=== PATIENT | female | born 1945 | race Caucasian/White ===

== ENCOUNTER 2017-08-20 14:25 | Emergency (ER) | payer MEDICARE, OTHER ==
[2017-08-20] MEDS ORDERED: Sodium Chloride 0.9% 2.5 ML Syringe FLUSH PRN (14:53)
[2017-08-20] MEDS ORDERED: Ketorolac 30 MG/ML SDV IVPUSH ONE (14:53)
[2017-08-20] MEDS ORDERED: Sodium Chloride 0.9% 10 ML Syringe FLUSH PRN (14:53)
[2017-08-20] MEDS ORDERED: Aspirin 81 MG Tab.Chew PO ONE (14:53)
--- NOTE | 2017-08-20 14:54 | EDM.PDOC ---
ED HPI GENERAL MEDICAL PROBLEM - General Chief Complaint: Upper Extremity Injury/Pain Stated Complaint: L SHOULDER PAIN, NECK PAIN Time Seen by Provider: 08/20/17 14:43 - History of Present Illness INITIAL COMMENTS - FREE TEXT/NARRATIVE: HISTORY AND PHYSICAL: History of present illness: The patient is a 72-year-old female who does see a provider at [facility] on an irregular basis and presents today with complaints of left shoulder pain that has been ongoing for the last 2 weeks. The patient denies any recent injury and did not overuse it and says that the pain is located in the anterior aspect of the shoulder as well as the posterior aspect of the upper shoulder radiating into her neck. It is worse with certain movements and there is no neurosensory changes or weakness in the arm. The patient also tells me that she has intermittent shortness of breath sometimes with exertion and sometimes at rest and she has had a slight cold but the shortness of breath has been ongoing before that. She said she saw Farzana Rodriguez at [facility] in the past for this and had a workup and I have found some of that workup in the computer which was performed in May 2016. The patient had a stress test here which was negative for ischemia and she has had wellness checks as well the last one in April 2017. The patient said that she was given an inhaler by Farzana and had blood work and an x-ray done over there back in May 2016 but she never really followed up afterwards. The patient denies any leg pain or swelling no abdominal complaints and has been eating and drinking normally. Patient tells me that when she takes a deep breath she sometimes feels the discomfort in her shoulder. Patient said she took [id number] Aleve and it did not seem to get any better. Patient is very vague when I ask her questions but when I specifically pressor on the shortness of breath it appears that it's not acutely new but she vacillates on the answer. Review of systems: As per history of present illness and below otherwise all systems reviewed and negative. Past medical history: As per history of present illness and as reviewed below otherwise noncontributory. Surgical history: As per history of present illness and as reviewed below otherwise noncontributory. Social history: No reported history of drug or alcohol abuse. Family history: As per history of present illness and as reviewed below otherwise noncontributory. Physical exam: General: Well-developed well-nourished thin female who is nontoxic and ambulated into the ED. She is not breathless and she is speaking clearly and vital signs are reviewed by me. HEENT: Atraumatic, normocephalic, pupils reactive, negative for conjunctival pallor or scleral icterus, mucous membranes moist, throat clear, neck supple, nontender, trachea midline. There are no midline step-offs in his defects of the cervical spine but there is some trapezius and left paraspinal cervical muscular tenderness and spasm on palpation. Lungs: Clear to auscultation, breath sounds equal bilaterally, chest nontender. There is no work of breathing stridor wheezing or sensory muscle use Heart: S1S2, regular rhythm tachycardic rate on my evaluation, negative for clicks, rubs, or JVD. Abdomen: Soft, nondistended, nontender. NABS Negative for costovertebral tenderness. Pelvis: Stable nontender. Genitourinary: Deferred. Rectal: Deferred. Extremities: Atraumatic, negative for cords or calf pain. Neurovascular unremarkable. No pedal edema or leg asymmetry. On palpation of the left shoulder and clavicle area there is no bony tenderness no gross soft tissue swelling no warmth and no bony tenderness. I palpate the trigger point on the left shoulder there is some discomfort and when I passively range of motion the patient there is discomfort at the extremes of the range. Patient says that I can reproduce the pain with this movement and with the palpation of the muscles. Neuro: Awake, alert, oriented. Cranial nerves II through XII unremarkable. Cerebellum unremarkable. Motor and sensory unremarkable throughout. Exam nonfocal. Diagnostics: EKG CBC CMP d-dimer troponin chest x-ray left shoulder x-ray and cultures 2 Therapeutics: IV O2 monitor Toradol aspirin and Tylenol Rocephin I discussed with the patient and her sister at bedside at length her testing results and have offered her admission due to her WBC count of 16.4 and her positive CAT scan indicating a lingular consolidation consistent with pneumonia. Patient absolutely wants to try outpatient treatment so I will give her a dose of Rocephin here and send her home with Levaquin orally. Patient currently has a temperature of 100 so I will give her a dose of Tylenol and have advised her to monitor her temperature at home using Tylenol and ibuprofen for the fever of 100.4 prior. I've also advised her on reasons to return and need for follow-up in the clinic for which she needs to call Wednesday morning. The patient is no longer tachycardic and she is not hypoxic. We will send blood cultures prior to her departure Impression: Lingular pneumonia, declining admission; mild left shoulder bursitis Definitive disposition and diagnosis as appropriate pending reevaluation and review of above. left shoulder Pain Score (Numeric/FACES): 8 - Related Data Allergies Allergy/AdvReac Type Severity Reaction Status Date / Time Sulfa (Sulfonamide Allergy Redness Verified 08/20/17 14:38 Antibiotics) Home Meds: Home Meds . [No Known Home Meds] 08/20/17 [History] Past Medical History - Infectious Disease History Infectious Disease History: Reports: Chicken Pox, Measles, Mumps - Past Surgical History HEENT Surgical History: Reports: Tonsillectomy Social & Family History - Family History Family Medical History: Noncontributory - Tobacco Use Smoking Status *Q: Never Smoker - Alcohol Use Days Per Week of Alcohol Use: 7 Number of Drinks Per Day: 1 Total Drinks Per Week: 7 - Recreational Drug Use Recreational Drug Use: No Review of Systems - Review of Systems Review Of Systems: ROS reveals no pertinent complaints other than HPI. ED EXAM, GENERAL - Physical Exam Exam: See Below (See dictation) Course - Vital Signs Last Recorded V/S: Last Vital Signs Temp 37.1 C 08/20/17 14:38 Pulse 120 H 08/20/17 14:38 Resp 18 08/20/17 14:38 BP 143/82 H 08/20/17 14:38 Pulse Ox 96 08/20/17 15:27 - Orders/Labs/Meds Orders: Active Orders 24 hr Category Date Time Status Cardiac Monitoring [RC] . DIRECTED Care 08/20/17 14:52 Active EKG Documentation Completion [RC] STAT Care 08/20/17 14:52 Active Oxygen Therapy, ED [RC] ASDIRECTED Care 08/20/17 14:52 Active Pulse Oximetry [RC] ASDIRECTED Care 08/20/17 14:52 Active Ang Chest [CT] Stat Exams 08/20/17 16:02 Taken Chest 2V [CR] Stat Exams 08/20/17 14:53 Taken Shoulder Comp Lt [CR] Stat Exams 08/20/17 14:53 Taken CULTURE BLOOD [BC] Stat Lab 08/20/17 17:39 Ordered CULTURE BLOOD [BC] Stat Lab 08/20/17 17:39 Ordered Acetaminophen [Tylenol] Med 08/20/17 17:39 Once 650 mg PO NOW ONE Sodium Chloride 0.9% [Saline Flush] Med 08/20/17 14:53 Active 10 ml FLUSH ASDIRECTED PRN Sodium Chloride 0.9% [Saline Flush] Med 08/20/17 14:53 Active 2.5 ml FLUSH ASDIRECTED PRN cefTRIAXone [Rocephin in Dextrose,Iso-Osm 1 GM/50 ML] 1 Med 08/20/17 17:33 Active gm Premix Bag 1 bag IV ONETIME Blood Culture x2 Reflex Set [OM.PC] Stat Oth 08/20/17 17:39 Ordered Saline Lock Insert [OM.PC] Stat Oth 08/20/17 14:52 Ordered Medication Orders Ceftriaxone Sodium/Dextrose 1 (gm/ Premix) 50 mls @ 100 mls/hr IV ONETIME ONE Stop: 08/20/17 18:02 Sodium Chloride (Saline Flush) 10 ml FLUSH ASDIRECTED PRN PRN Reason: Keep Vein Open Sodium Chloride (Saline Flush) 2.5 ml FLUSH ASDIRECTED PRN PRN Reason: Keep Vein Open Labs: Laboratory Tests 08/20/17 08/20/17 08/20/17 Range/Units 15:11 15:11 15:11 WBC 16.46 H (4.0-11.0) K/uL RBC 4.25 L (4.30-5.90) M/uL Hgb 12.5 (12.0-16.0) g/dL Hct 37.3 (36.0-46.0) % MCV 87.8 (80.0-98.0) fL MCH 29.4 (27.0-32.0) pg MCHC 33.5 (31.0-37.0) g/dL RDW Std Deviation 45.6 (28.0-62.0) fl RDW Coeff of Anitha 14 (11.0-15.0) % Plt Count 370 (150-400) K/uL MPV 9.50 (7.40-12.00) fL Neut % (Auto) 84.9 H (48.0-80.0) % Lymph % (Auto) 7.7 L (16.0-40.0) % Morton % (Auto) 7.0 (0.0-15.0) % Eos % (Auto) 0.2 (0.0-7.0) % Baso % (Auto) 0.2 (0.0-1.5) % Neut # (Auto) 14.0 H (1.4-5.7) K/uL Lymph # (Auto) 1.3 (0.6-2.4) K/uL Morton # (Auto) 1.2 H (0.0-0.8) K/uL Eos # (Auto) 0.0 (0.0-0.7) K/uL Baso # (Auto) 0.0 (0.0-0.1) K/uL Nucleated RBC % 0.0 /100WBC Nucleated RBCs # 0 K/uL D-Dimer, Quantitative 1.04 H (0.0-0.52) mg/LFEU Lactate (0.20-2.00) mmol/L Sodium 138 (136-146) mmol/L Potassium 4.1 (3.5-5.1) mmol/L Chloride 102 (98-110) mmol/L Carbon Dioxide 20 L (21-31) mmol/L BUN 10 (6.0-23.0) mg/dL Creatinine 0.8 (0.6-1.5) mg/dL Est Cr Clr Drug Dosing 57.75 mL/min Estimated GFR (MDRD) > 60.0 ml/min Glucose 112 H (60-110) mg/dL Calcium 9.5 (8.8-10.8) mg/dL Total Bilirubin 1.0 (0.1-1.5) mg/dL AST 27 (5-40) IU/L ALT 23 (8-54) IU/L Alkaline Phosphatase 181 H (40-150) Troponin I < 0.10 (0.0-0.29) NG/ML Total Protein 7.1 (6.0-8.0) g/dL Albumin 4.1 (3.4-4.8) g/dL Globulin 3.0 (2.0-3.5) g/dL Albumin/Globulin Ratio 1.4 (1.3-2.8) 08/20/17 Range/Units 15:11 WBC (4.0-11.0) K/uL RBC (4.30-5.90) M/uL Hgb (12.0-16.0) g/dL Hct (36.0-46.0) % MCV (80.0-98.0) fL MCH (27.0-32.0) pg MCHC (31.0-37.0) g/dL RDW Std Deviation (28.0-62.0) fl RDW Coeff of Anitha (11.0-15.0) % Plt Count (150-400) K/uL MPV (7.40-12.00) fL Neut % (Auto) (48.0-80.0) % Lymph % (Auto) (16.0-40.0) % Morton % (Auto) (0.0-15.0) % Eos % (Auto) (0.0-7.0) % Baso % (Auto) (0.0-1.5) % Neut # (Auto) (1.4-5.7) K/uL Lymph # (Auto) (0.6-2.4) K/uL Morton # (Auto) (0.0-0.8) K/uL Eos # (Auto) (0.0-0.7) K/uL Baso # (Auto) (0.0-0.1) K/uL Nucleated RBC % /100WBC Nucleated RBCs # K/uL D-Dimer, Quantitative (0.0-0.52) mg/LFEU Lactate 1.1 (0.20-2.00) mmol/L Sodium (136-146) mmol/L Potassium (3.5-5.1) mmol/L Chloride (98-110) mmol/L Carbon Dioxide (21-31) mmol/L BUN (6.0-23.0) mg/dL Creatinine (0.6-1.5) mg/dL Est Cr Clr Drug Dosing mL/min Estimated GFR (MDRD) ml/min Glucose (60-110) mg/dL Calcium (8.8-10.8) mg/dL Total Bilirubin (0.1-1.5) mg/dL AST (5-40) IU/L ALT (8-54) IU/L Alkaline Phosphatase (40-150) Troponin I (0.0-0.29) NG/ML Total Protein (6.0-8.0) g/dL Albumin (3.4-4.8) g/dL Globulin (2.0-3.5) g/dL Albumin/Globulin Ratio (1.3-2.8) Meds: Medications Generic Name Dose Route Start Last Admin Trade Name Freq PRN Reason Stop Dose Admin Ceftriaxone Sodium/Dextrose 1 50 mls @ 100 mls/hr 08/20/17 17:33 gm/ Premix IV 08/20/17 18:02 ONETIME ONE Sodium Chloride 10 ml 08/20/17 14:53 Saline Flush FLUSH ASDIRECTED PRN Keep Vein Open Sodium Chloride 2.5 ml 08/20/17 14:53 Saline Flush FLUSH ASDIRECTED PRN Keep Vein Open Discontinued Medications Generic Name Dose Route Start Last Admin Trade Name Freq PRN Reason Stop Dose Admin Aspirin 324 mg 08/20/17 14:53 08/20/17 15:15 Aspirin PO 08/20/17 14:54 324 mg ONETIME ONE Administration Iopamidol 50 ml 08/20/17 16:12 08/20/17 16:39 Isovue-370 (76%) IV 08/20/17 16:13 50 ml ONETIME STA Administration Ketorolac Tromethamine 30 mg 08/20/17 14:53 08/20/17 15:16 Toradol IVPUSH 08/20/17 14:54 30 mg ONETIME ONE Administration Departure - Departure Time of Disposition: 17:42 Disposition: Home, Self-Care 01 Condition: Good Clinical Impression: Pneumonia Qualifiers: Pneumonia type: due to unspecified organism Laterality: left Lung location: unspecified part of lung Qualified Code(s): J18.9 - Pneumonia, unspecified organism - Discharge Information Referrals: Mindy Rodriguez NP [Primary Care Provider] - Forms: ED Department Discharge Additional Instructions: The following information is given to patients seen in the emergency department who are being discharged to home. This information is to outline your options for follow-up care. We provide all patients seen in our emergency department with a follow-up referral. The need for follow-up, as well as the timing and circumstances, are variable depending upon the specifics of your emergency department visit. If you don't have a primary care physician on staff, we will provide you with a referral. We always advise you to contact your personal physician following an emergency department visit to inform them of the circumstance of the visit and for follow-up with them and/or the need for any referrals to a consulting specialist. The emergency department will also refer you to a specialist when appropriate. This referral assures that you have the opportunity for followup care with a specialist. All of these measure are taken in an effort to provide you with optimal care, which includes your followup. Under all circumstances we always encourage you to contact your private physician who remains a resource for coordinating your care. When calling for followup care, please make the office aware that this follow-up is from your recent emergency room visit. If for any reason you are refused follow-up, please contact the [facility] emergency department at and ask to speak to the emergency department charge nurse. [facility]- [facility] [address] [place] [id number] [facility] Specialty Care--Orthopedic clinic Professional Building [address] [place] [phone] Please call the clinic on Wednesday morning at 8 AM to get a next but I did ER follow-up and please tell the retail asset protection specialist that your seen in the ER on Wednesday and need this follow-up image. Please take antibiotics as prescribed and push fluids. Use Tylenol or ibuprofen for temperatures and return to ER as needed and as discussed. Please also call and follow-up with our orthopedics clinic for your bursitis shoulder pain. - My Orders Last 24 Hours: My Active Orders 08/20/17 14:52 Cardiac Monitoring [RC] . DIRECTED EKG Documentation Completion [RC] STAT Oxygen Therapy, ED [RC] ASDIRECTED Pulse Oximetry [RC] ASDIRECTED Saline Lock Insert [OM.PC] Stat 08/20/17 14:53 Chest 2V [CR] Stat Shoulder Comp Lt [CR] Stat Sodium Chloride 0.9% [Saline Flush] 10 ml FLUSH ASDIRECTED PRN Sodium Chloride 0.9% [Saline Flush] 2.5 ml FLUSH ASDIRECTED PRN 08/20/17 16:02 Ang Chest [CT] Stat 08/20/17 17:33 cefTRIAXone [Rocephin in Dextrose,Iso-Osm 1 GM/50 ML] 1 gm Premix Bag 1 bag IV ONETIME 08/20/17 17:39 CULTURE BLOOD [BC] Stat CULTURE BLOOD [BC] Stat Acetaminophen [Tylenol] 650 mg PO NOW ONE Blood Culture x2 Reflex Set [OM.PC] Stat - Assessment/Plan Last 24 Hours: My Active Orders 08/20/17 14:52 Cardiac Monitoring [RC] . DIRECTED EKG Documentation Completion [RC] STAT Oxygen Therapy, ED [RC] ASDIRECTED Pulse Oximetry [RC] ASDIRECTED Saline Lock Insert [OM.PC] Stat 08/20/17 14:53 Chest 2V [CR] Stat Shoulder Comp Lt [CR] Stat Sodium Chloride 0.9% [Saline Flush] 10 ml FLUSH ASDIRECTED PRN Sodium Chloride 0.9% [Saline Flush] 2.5 ml FLUSH ASDIRECTED PRN 08/20/17 16:02 Ang Chest [CT] Stat 08/20/17 17:33 cefTRIAXone [Rocephin in Dextrose,Iso-Osm 1 GM/50 ML] 1 gm Premix Bag 1 bag IV ONETIME 08/20/17 17:39 CULTURE BLOOD [BC] Stat CULTURE BLOOD [BC] Stat Acetaminophen [Tylenol] 650 mg PO NOW ONE Blood Culture x2 Reflex Set [OM.PC] Stat
[2017-08-20 15:41] LABS: CHLORIDE,CL 102 mmol/L (98-110); SODIUM,NA 138 mmol/L (136-146)
[2017-08-20] MEDS ORDERED: Iopamidol 755 MG/ML 50 ML Bottle IV STA (16:12)
[2017-08-20] MEDS ORDERED: cefTRIAXone 1 GM in Premix Bag 1 BAG IV ONE (17:33)
[2017-08-20] MEDS ORDERED: Acetaminophen 325 MG Tab PO ONE (17:39)
--- NOTE | 2017-08-23 10:23 | CR ---
EXAM DATE: 08/20/17 PATIENT'S AGE: 72 Patient: ROBERT LARA Facility: [place], [place] Site . Site : 1945 Study: XRay Shoulder Left [id number]/2/2018 4:24:25 PM Ordering Physician: Marisol Honeycutt Final Report: Indication: Left shoulder pain. Technique: Left shoulder 3 views. Comparison: None. Findings: Bones: Alignment is normal. No fractures or bone lesions. Joint spaces: Unremarkable. No significant DJD. Soft tissues: Unremarkable. Impression: Unremarkable left shoulder. No specific finding to explain pain. Dictated by Hari Bucio MD @ Aug 20 2017 4:27PM (Electronic Signature) Report Signed by Proxy. MTDD
--- NOTE | 2017-08-23 10:26 | CR ---
EXAM DATE: 08/20/17 PATIENT'S AGE: 72 Patient: ROBERT LARA Facility: [place], [place] Site . Site : 1945 Study: XRay Chest [id number]/2/2018 4:25:02 PM Ordering Physician: Marisol Honeycutt Final Report: INDICATION: Left shoulder pain TECHNIQUE: Chest 2 views COMPARISON: None FINDINGS: Cardiovascular and mediastinum: Heart size and vasculature are normal in caliber and appearance. Lungs and pleural spaces: There is an atypical opacity in the left lung base and blunting of the left costophrenic angle. Remainder of the lungs and pleural spaces are clear. No pneumothorax. Bones and soft tissues: No significant findings. IMPRESSION: Somewhat atypical appearance of a presumed left side pleural effusion. Chest CT should be considered for further evaluation. At minimum a short term follow up chest x-ray should be obtained. Remainder of the exam is unremarkable. Dictated by Hari Bucio MD @ Aug 20 2017 4:27PM (Electronic Signature) Report Signed by Proxy. AMINATA
--- NOTE | 2017-08-23 10:35 | CT ---
EXAM DATE: 08/20/17 PATIENT'S AGE: 72 Patient: ROBERT LARA Facility: [place], [place] Site . Site : 1945 Study: CT Chest Angio [id number] -08/20/2017 4:49:53 PM Ordering Physician: Marisol Honeycutt Final Report: INDICATION: Shortness of Breath TECHNIQUE: CT chest pulmonary angiogram acquired with IV contrast COMPARISON: None FINDINGS: Cardiovascular structures: Normal vascular enhancement of the pulmonary arteries , no sign of pulmonary embolism. Heart size is normal. Atherosclerotic disease. No sign of aneurysm or dissection in the thoracic aorta. Mediastinum and jose: Prominent nonspecific mediastinal lymph nodes. Incompletely evaluated left thyroid nodule with associated calcifications. Lungs: Lingular consolidation. Left-sided pleural effusion with associated compressive atelectasis. No evidence of pneumothorax. Chest wall and axilla: No mass or adenopathy. Bones: Degenerative changes. Upper abdomen: Hiatal hernia IMPRESSION: 1. No evidence of pulmonary embolism. 2. Lingular consolidation. Left-sided pleural effusion with associated compressive atelectasis. Prominent mediastinal lymph nodes. Please correlate for pneumonia. 3. Incompletely evaluated left thyroid nodule with associated calcifications. Please correlate clinically and with laboratory findings. Dictated by Darien Hall MD @ 08/20/2017 5:09:12 PM Dictated by: Darien Hall MD @ 08/20/2017 17:09:46 (Electronic Signature) Report Signed by Proxy. [facility]ITAL[facility]
== END 2017-08-20 18:50 | disposition home or self-care (01) ==
LOC: MW.ED 14:25
DX: M75.52 Bursitis of left shoulder (principal); J18.9 Pneumonia, unspecified organism; Z88.2 Allergy status to sulfonamides
CPT/HCPCS: 36415; 71046; 71275; 73030; 80053; 83605; 84484; 85025; 85379; 87040; 96365; 96375; 99284; A9270; J0696; J1885; Q9967

== ENCOUNTER 2017-10-01 08:22 | Inpatient (IN) | payer MEDICARE, OTHER ==
[2017-10-01] MEDS ORDERED: Sodium Chloride 0.9% 10 ML Syringe FLUSH PRN (08:37)
[2017-10-01] MEDS ORDERED: Sodium Chloride 0.9% 2.5 ML Syringe FLUSH PRN (08:37)
--- NOTE | 2017-10-01 08:41 | EDM.PDOC ---
ED HPI GENERAL MEDICAL PROBLEM - General Chief Complaint: Neck Problem Stated Complaint: NECK PAIN Time Seen by Provider: 10/01/17 11:31 - History of Present Illness INITIAL COMMENTS - FREE TEXT/NARRATIVE: HISTORY AND PHYSICAL: History of present illness: Patient 72-year-old female with a history of chronic dyspnea for which she has been evaluated and has a scheduled pulmonology appointment patient is a nonsmoker she also has history of shoulder pain for which she received a cortisone shot recently and presents today with increasing shortness of breath and neck pain this is worse with movement she denies trauma she denies chest pain denies nausea vomiting palpitations fever chills or other complaints daughter is here with patient states she has had pneumonia in the past and frequent episodes of such. Review of systems: As per history of present illness and below otherwise all systems reviewed and negative. Past medical history: As per history of present illness and as reviewed below otherwise noncontributory. Surgical history: As per history of present illness and as reviewed below otherwise noncontributory. Social history: No reported history of drug or alcohol abuse. Family history: As per history of present illness and as reviewed below otherwise noncontributory. Physical exam: HEENT: Atraumatic, normocephalic, pupils reactive, negative for conjunctival pallor or scleral icterus, mucous membranes moist, throat clear, neck supple, mild paracervical tenderness no vertebral body or point tenderness, trachea midline. Lungs: Diminished slightly coarse breath sounds equal bilaterally, chest nontender. Heart: S1S2, regular, negative for clicks, rubs, or JVD. Abdomen: Soft, nondistended, nontender. Negative for masses or hepatosplenomegaly. Negative for costovertebral tenderness. Pelvis: Stable nontender. Genitourinary: Deferred. Rectal: Deferred. Extremities: Atraumatic, negative for cords or calf pain. Neurovascular unremarkable. Neuro: Awake, alert, oriented. Cranial nerves II through XII unremarkable. Cerebellum unremarkable. Motor and sensory unremarkable throughout. Exam nonfocal. Diagnostics: CBC CMP troponin d-dimer PT/INR EKG chest x-ray CT cervical spine ABG Therapeutics: IV O2 monitor Impression: #1 dyspnea #2 neck/Shoulder pain Definitive disposition and diagnosis as appropriate pending reevaluation and review of above. Neck Pain Score (Numeric/FACES): 5 - Related Data Allergies Allergy/AdvReac Type Severity Reaction Status Date / Time Sulfa (Sulfonamide Allergy Redness Verified 08/20/17 14:38 Antibiotics) Home Meds: Home Meds Fluticasone/Salmeterol [Advair 250-50 Diskus] 10/01/17 [History] Past Medical History - Infectious Disease History Infectious Disease History: Reports: Chicken Pox, Measles, Mumps - Past Surgical History HEENT Surgical History: Reports: Tonsillectomy Social & Family History - Family History Family Medical History: Noncontributory - Tobacco Use Smoking Status *Q: Never Smoker - Alcohol Use Days Per Week of Alcohol Use: 7 Number of Drinks Per Day: 1 Total Drinks Per Week: 7 - Recreational Drug Use Recreational Drug Use: No ED ROS GENERAL - Review of Systems Review Of Systems: ROS reveals no pertinent complaints other than HPI. ED EXAM, GENERAL - Physical Exam Exam: See Below (See dictation) Course - Vital Signs Last Recorded V/S: Last Vital Signs Temp 37.1 C 10/01/17 08:32 Pulse 120 H 10/01/17 08:32 Resp 20 10/01/17 08:32 BP 126/78 10/01/17 08:32 Pulse Ox 96 10/01/17 08:32 - Orders/Labs/Meds Orders: Active Orders 24 hr Category Date Time Status Cardiac Monitoring [RC] . DIRECTED Care 10/01/17 08:36 Active EKG Documentation Completion [RC] STAT Care 10/01/17 08:36 Active Pulse Oximetry [RC] ASDIRECTED Care 10/01/17 08:36 Active CULTURE BLOOD [BC] Stat Lab 10/01/17 11:28 Ordered CULTURE BLOOD [BC] Stat Lab 10/01/17 11:28 Ordered Levofloxacin/Dextrose 5%-Water [Levaquin in D5W 750 MG/ Med 10/01/17 11:28 Active 150 ML] 750 mg Premix Bag 1 bag IV ONETIME Sodium Chloride 0.9% [Normal Saline] 1,000 ml Med 10/01/17 08:45 Active IV STAT Sodium Chloride 0.9% [Saline Flush] Med 10/01/17 08:37 Active 10 ml FLUSH ASDIRECTED PRN Sodium Chloride 0.9% [Saline Flush] Med 10/01/17 08:37 Active 2.5 ml FLUSH ASDIRECTED PRN Blood Culture x2 Reflex Set [OM.PC] Stat Oth 10/01/17 11:28 Ordered Saline Lock Insert [OM.PC] Stat Ot 10/01/17 08:36 Ordered Medication Orders Sodium Chloride (Normal Saline) 1,000 mls @ 125 mls/hr IV STAT [facility] Last Admin: 10/01/17 09:58 Dose: 125 mls/hr Levofloxacin/Dextrose 750 mg/ (Premix) 150 mls @ 100 mls/hr IV ONETIME ONE Stop: 10/01/17 12:57 Sodium Chloride (Saline Flush) 10 ml FLUSH ASDIRECTED PRN PRN Reason: Keep Vein Open Last Admin: 10/01/17 09:59 Dose: 10 ml Sodium Chloride (Saline Flush) 2.5 ml FLUSH ASDIRECTED PRN PRN Reason: Keep Vein Open Last Admin: 10/01/17 09:59 Dose: 2.5 ml Labs: Laboratory Tests 10/01/17 10/01/17 10/01/17 Range/Units 08:50 08:50 08:50 WBC 8.45 (4.0-11.0) K/uL RBC 4.36 (4.30-5.90) M/uL Hgb 13.0 (12.0-16.0) g/dL Hct 38.4 (36.0-46.0) % MCV 88.1 (80.0-98.0) fL MCH 29.8 (27.0-32.0) pg MCHC 33.9 (31.0-37.0) g/dL RDW Std Deviation 50.4 (28.0-62.0) fl RDW Coeff of Anitha 16 H (11.0-15.0) % Plt Count 190 (150-400) K/uL MPV 9.60 (7.40-12.00) fL Neut % (Auto) 88.9 H (48.0-80.0) % Lymph % (Auto) 6.7 L (16.0-40.0) % [place] % (Auto) 4.1 (0.0-15.0) % Eos % (Auto) 0.2 (0.0-7.0) % Baso % (Auto) 0.1 (0.0-1.5) % Neut # (Auto) 7.5 H (1.4-5.7) K/uL Lymph # (Auto) 0.6 (0.6-2.4) K/uL [place] # (Auto) 0.4 (0.0-0.8) K/uL Eos # (Auto) 0.0 (0.0-0.7) K/uL Baso # (Auto) 0.0 (0.0-0.1) K/uL Nucleated RBC % 0.0 /100WBC Nucleated RBCs # 0 K/uL INR 0.98 D-Dimer, Quantitative 0.67 H (0.0-0.52) mg/LFEU ABG pH (7.35-7.45) ABG pCO2 (35-45) mmHG ABG pO2 (75-100) mmHG ABG HCO3 (22-26) mEq/L ABG Total CO2 ABG Base Excess (-2.0-2.0) Sodium 135 L (136-145) mmol/L Potassium 3.6 (3.5-5.1) mmol/L Chloride 101 (98-107) mmol/L Carbon Dioxide 21.8 (21.0-32.0) mmol/L BUN 12 (7.0-18.0) mg/dL Creatinine 0.7 (0.6-1.0) mg/dL Est Cr Clr Drug Dosing TNP Estimated GFR (MDRD) > 60.0 ml/min Glucose 102 (74-106) mg/dL Calcium 8.5 (8.5-10.1) mg/dL Total Bilirubin 1.0 (0.2-1.0) mg/dL AST 15 (15-37) IU/L ALT 17 (14-63) IU/L Alkaline Phosphatase 96 (46-116) U/L Troponin I < 0.050 (0.000-0.056) ng/mL B-Natriuretic Peptide (<100) PG/ML Total Protein 6.4 (6.4-8.2) g/dL Albumin 3.6 (3.4-5.0) g/dL Globulin 2.8 (2.0-3.5) g/dL Albumin/Globulin Ratio 1.3 (1.3-2.8) 10/01/17 10/01/17 Range/Units 08:50 10:06 WBC (4.0-11.0) K/uL RBC (4.30-5.90) M/uL Hgb (12.0-16.0) g/dL Hct (36.0-46.0) % MCV (80.0-98.0) fL MCH (27.0-32.0) pg MCHC (31.0-37.0) g/dL RDW Std Deviation (28.0-62.0) fl RDW Coeff of Anitha (11.0-15.0) % Plt Count (150-400) K/uL MPV (7.40-12.00) fL Neut % (Auto) (48.0-80.0) % Lymph % (Auto) (16.0-40.0) % [place] % (Auto) (0.0-15.0) % Eos % (Auto) (0.0-7.0) % Baso % (Auto) (0.0-1.5) % Neut # (Auto) (1.4-5.7) K/uL Lymph # (Auto) (0.6-2.4) K/uL [place] # (Auto) (0.0-0.8) K/uL Eos # (Auto) (0.0-0.7) K/uL Baso # (Auto) (0.0-0.1) K/uL Nucleated RBC % /100WBC Nucleated RBCs # K/uL INR D-Dimer, Quantitative (0.0-0.52) mg/LFEU ABG pH 7.498 H (7.35-7.45) ABG pCO2 29 L (35-45) mmHG ABG pO2 69 L (75-100) mmHG ABG HCO3 23 (22-26) mEq/L ABG Total CO2 20.1 ABG Base Excess 0.2 (-2.0-2.0) Sodium (136-145) mmol/L Potassium (3.5-5.1) mmol/L Chloride (98-107) mmol/L Carbon Dioxide (21.0-32.0) mmol/L BUN (7.0-18.0) mg/dL Creatinine (0.6-1.0) mg/dL Est Cr Clr Drug Dosing Estimated GFR (MDRD) ml/min Glucose (74-106) mg/dL Calcium (8.5-10.1) mg/dL Total Bilirubin (0.2-1.0) mg/dL AST (15-37) IU/L ALT (14-63) IU/L Alkaline Phosphatase (46-116) U/L Troponin I (0.000-0.056) ng/mL B-Natriuretic Peptide 135 H (<100) PG/ML Total Protein (6.4-8.2) g/dL Albumin (3.4-5.0) g/dL Globulin (2.0-3.5) g/dL Albumin/Globulin Ratio (1.3-2.8) Meds: Medications Generic Name Dose Route Start Last Admin Trade Name Freq PRN Reason Stop Dose Admin Sodium Chloride 1,000 mls @ 125 mls/hr 10/01/17 08:45 10/01/17 09:58 Normal Saline IV 125 mls/hr STAT SUNNY Administration Levofloxacin/Dextrose 750 mg/ 150 mls @ 100 mls/hr 10/01/17 11:28 Premix IV 10/01/17 12:57 ONETIME ONE Sodium Chloride 10 ml 10/01/17 08:37 10/01/17 09:59 Saline Flush FLUSH 10 ml ASDIRECTED PRN Administration Keep Vein Open Sodium Chloride 2.5 ml 10/01/17 08:37 10/01/17 09:59 Saline Flush FLUSH 2.5 ml ASDIRECTED PRN Administration Keep Vein Open Discontinued Medications Generic Name Dose Route Start Last Admin Trade Name Freq PRN Reason Stop Dose Admin Iopamidol 50 ml 10/01/17 10:28 10/01/17 10:34 Isovue Multipack-370 (76%) IVPUSH 10/01/17 10:29 50 ml ONETIME STA Administration Departure - Departure Time of Disposition: 11:30 Disposition: Admitted As Inpatient 64 Condition: Good Clinical Impression: Pneumonia Qualifiers: Pneumonia type: due to unspecified organism Laterality: left Lung location: unspecified part of lung Qualified Code(s): J18.9 - Pneumonia, unspecified organism - Discharge Information Referrals: PCP,None [Primary Care Provider] - Forms: ED Department Discharge - My Orders Last 24 Hours: My Active Orders 10/01/17 08:36 Cardiac Monitoring [RC] . DIRECTED EKG Documentation Completion [RC] STAT Pulse Oximetry [RC] ASDIRECTED Saline Lock Insert [OM.PC] Stat 10/01/17 08:37 Sodium Chloride 0.9% [Saline Flush] 10 ml FLUSH ASDIRECTED PRN Sodium Chloride 0.9% [Saline Flush] 2.5 ml FLUSH ASDIRECTED PRN 10/01/17 08:45 Sodium Chloride 0.9% [Normal Saline] 1,000 ml IV STAT 10/01/17 11:28 CULTURE BLOOD [BC] Stat CULTURE BLOOD [BC] Stat Levofloxacin/Dextrose 5%-Water [Levaquin in D5W 750 MG/150 ML] 750 mg Premix Bag 1 bag IV ONETIME Blood Culture x2 Reflex Set [OM.PC] Stat - Assessment/Plan Last 24 Hours: My Active Orders 10/01/17 08:36 Cardiac Monitoring [RC] . DIRECTED EKG Documentation Completion [RC] STAT Pulse Oximetry [RC] ASDIRECTED Saline Lock Insert [OM.PC] Stat 10/01/17 08:37 Sodium Chloride 0.9% [Saline Flush] 10 ml FLUSH ASDIRECTED PRN Sodium Chloride 0.9% [Saline Flush] 2.5 ml FLUSH ASDIRECTED PRN 10/01/17 08:45 Sodium Chloride 0.9% [Normal Saline] 1,000 ml IV STAT 10/01/17 11:28 CULTURE BLOOD [BC] Stat CULTURE BLOOD [BC] Stat Levofloxacin/Dextrose 5%-Water [Levaquin in D5W 750 MG/150 ML] 750 mg Premix Bag 1 bag IV ONETIME Blood Culture x2 Reflex Set [OM.PC] Stat
[2017-10-01] MEDS ORDERED: Sodium Chloride 0.9% 1,000 ML IV SCH (08:45)
--- NOTE | 2017-10-01 09:31 | CT ---
EXAMINATION: CT cervical spine HISTORY: Pain COMPARISON: None TECHNIQUE: Axial CT images obtained through the cervical spine without contrast. Coronal and sagittal reconstructions obtained. FINDINGS: There is mild reversal of the normal cervical lordosis centered at C5 with minimal anteroli sthesis of C4 on C5. Mild facet arthritic changes are noted. No fracture or acute osseous abnormality . Bone mineralization appears mildly osteopenic. Moderate degenerative changes noted within the tempo romandibular joints bilaterally. There is a 2.5 x 1.7 cm left thyroid nodule containing calcification s. Prevertebral soft tissues otherwise appear grossly normal. The lung apices are clear. IMPRESSION: 1. No acute cervical spinal abnormality. 2. Mild degenerative changes and generalized osteopenia. 3. There is a 2.5 x 1.7 cm left thyroid lobe nodule, correlation with ultrasound may be beneficial.
--- NOTE | 2017-10-01 09:38 | CR ---
EXAMINATION: Two-view chest (PA and Lateral views). HISTORY: Shortness of breath. Comparison: 08/20/2017. FINDINGS: The trachea is midline. The cardiomediastinal silhouette is within normal limits. Mild infiltrate is noted within the right lung base. No pleural effusion or pneumothorax. Osseous structures appear osteopenic. The curvature of the lower thoracic spine is noted. IMPRESSION: Mild right basilar infiltrate, likely developing pneumonia.
[2017-10-01 09:41] LABS: CHLORIDE,CL 101 mmol/L (98-107); SODIUM,NA 135 mmol/L (136-145)
[2017-10-01] MEDS ORDERED: Iopamidol 755 MG/ML 500 ML Multipack Bottle IVPUSH STA (10:28)
--- NOTE | 2017-10-01 10:58 | CT ---
EXAMINATION: CTA chest HISTORY: Shortness of breath COMPARISON: Radiographs from the same day, CT dated 08/20/2017 TECHNIQUE: Axial CT images obtained through the chest following the administration of 50 mL of Isovue -370 the right antecubital fossa. Coronal and sagittal reconstructions obtained. FINDINGS: There is patchy nodular infiltrate noted in the right upper lobe, right middle lobe, and ri ght lower lobe. This is new in comparison to the recent CT and likely represents an infectious proces s. There is a small to moderate hiatal hernia noted. Heart is normal in size without a pericardial ef fusion. Thoracic aorta is normal in caliber. Main pulmonary arteries are patent. No pulmonary embolis m identified. Central airways are clear. No mediastinal, hilar, or axillary lymphadenopathy. Mild cor onary artery calcifications. Visualized images of the upper abdomen appear normal. No suspicious osseous abnormalities identified. IMPRESSION: 1. Patchy right pulmonary consolidation, most likely representing infectious etiology. 2. Small to moderate hiatal hernia. 3. No pulmonary embolism identified.
[2017-10-01] MEDS ORDERED: Levofloxacin/Dextrose 5%-Water 750 MG in Premix Bag 1 BAG IV ONE (11:28)
[2017-10-01] MEDS ORDERED: Ondansetron 4 MG/2 ML SDV IVPUSH PRN (12:29)
[2017-10-01] MEDS ORDERED: Albuterol/Ipratropium 3.0-0.5 MG/3 ML Neb Soln NEB PRN (12:29)
--- NOTE | 2017-10-01 12:40 | PCM.HP ---
H&P History of Present Illness - General Date of Service: 10/01/17 Admit Problem/Dx: CAP, dyspnea Source of Information: Patient History Limitations: Reports: No Limitations - History of Present Illness Initial Comments - Free Text/Narative: This 72 asa old female with very little pmh but recently with worsening dyspnea presented to the ED today with neck pain and worsening dypsnea. She and daughter at bedside. Ashley reports she has been feeling more short of breath recently and very anxious with this. She reports this has started to be worked up as outpatient and has a scheduled appointment with pulmonology November 01. She recently had PFT testing here. She also was restarted on her Advair as well 250/50 mg 3-4 days ago by her PCP, Jamel Rodriguez [employer]. She denies fevers at home, some non productive cough and some general malaise. She was diagnoses with LLL pneumonia and declined admission approximately 1 month ago. She was sent home with Levaquin PO and felt better, but then within the last couple days worsened again. She denies chest pain, but some chest tightness with taking deep breaths and taking deep breaths is hard for her due to the dyspnea. No abdominal pain or urinary symptoms. No black or bloody BMs. She denies smoking history, but reports she was exposed to second hand smoke from her in the 1970s, until he quit. Drinks 1 glass of wine nightly and no recreational drug use. In the ED WBC 8,450, D dimer elevated slightly at 0.67, ABG obtained which revealed hypoxemia with PCO2 of 69. BMP negative. BNP 135. Cervical CT was obtianed due to neck pain, bilaterally no acute cervical spine abnormalities, degenerative changes and osteopenia noted. There was a small 2.5 x 1.7 cm L thyroid mass. CXR mild R basilar infiltrate CT angio obtained due to elevated d dimer, R pulmonary consolidation, hiatal hernia, no pulmonary embolism. She will be admitted inpatient for CAP and dypsnea. PCP, Jamel Rodriguez, KENDY Neck Pain Score (Numeric/FACES): 5 - Related Data Allergies/Adverse Reactions: Allergies Allergy/AdvReac Type Severity Reaction Status Date / Time Sulfa (Sulfonamide Allergy Redness Verified 08/20/17 14:38 Antibiotics) Home Medications: Home Meds Fluticasone/Salmeterol [Advair 250-50 Diskus] 1 inh INH Q12HR 10/01/17 [History] Past Medical History Cardiovascular History: Reports: None. Denies: CAD, High Cholesterol, Hypertension Respiratory History: Reports: Pneumonia, Recurrent, SOB. Denies: Asthma, COPD Gastrointestinal History: Reports: None. Denies: GERD, GI Bleed Genitourinary History: Reports: None. Denies: Acute Renal Failure, Chronic Renal Insuffiency [employer] ENGINEER History: Reports: Neurological History: Reports: None. Denies: CVA, TIA Psychiatric History: Reports: Anxiety Endocrine/Metabolic History: Denies: Diabetes, Type II, Hypothyroidism, Obesity/ BMI 30+ - Infectious Disease History Infectious Disease History: Reports: Chicken Pox, Measles, Mumps - Past Surgical History HEENT Surgical History: Reports: Tonsillectomy Social & Family History - Family History Family Medical History: Noncontributory - Tobacco Use Smoking Status *Q: Never Smoker Second Hand Smoke Exposure: Yes - Alcohol Use Days Per Week of Alcohol Use: 7 Number of Drinks Per Day: 1 Total Drinks Per Week: 7 - Recreational Drug Use Recreational Drug Use: No - Living Situation & Occupation Living situation: Reports: Alone Occupation: Retired H&P Review of Systems - Review of Systems: Review Of Systems: See Below General: Reports: Malaise, Fatigue. Denies: Fever, Chills, Night Sweats HEENT: Reports: Sore Throat. Denies: Headaches, Hearing Changes, Sinus Congestion, Visual Changes Pulmonary: Reports: Shortness of Breath, Pleuritic Chest Pain, Cough. Denies: Wheezing, Sputum, Hemoptysis Cardiovascular: Reports: No Symptoms. Denies: Chest Pain, Palpitations, Lightheadedness Gastrointestinal: Reports: No Symptoms. Denies: Abdominal Pain, Black Stool, Bloody Stool, Nausea, Vomiting Genitourinary: Reports: No Symptoms. Denies: Dysuria, Frequency, Burning, Pain Musculoskeletal: Reports: Neck Pain (upper trapezius bilaterally) Psychiatric: Reports: Anxiety Neurological: Reports: No Symptoms Hematologic/Lymphatic: Reports: No Symptoms Exam - Exam Exam: See Below - Vital Signs Vital Signs: Last Vital Signs Temp 98.8 F 10/01/17 08:32 Pulse 120 H 10/01/17 08:32 Resp 20 10/01/17 08:32 BP 126/78 10/01/17 08:32 Pulse Ox 96 10/01/17 08:32 Weight: 66.678 kg - Exam Quality Assessment: Supplemental Oxygen. No: DVT Prophylaxis General: Alert, Oriented, Cooperative, Mild Distress, Moderate Distress HEENT: Conjunctiva Clear, Posterior Pharynx Clear (scant erythema to posterior pharynx) Neck: Supple, Trachea Midline, 2 Lungs: Clear to Auscultation, Normal Respiratory Effort, Other (noticeable anxiety and dyspnea on exam) GI/Abdominal Exam: Normal Bowel Sounds, Soft, Non-Tender, No Organomegaly, No Distention, No Abnormal Bruit, No Mass, Pelvis Stable Extremities: Normal Inspection, Normal Range of Motion, Non-Tender, No Pedal Edema, Normal Capillary Refill Neuro Extensive - Mental Status: Alert, Oriented x3, Normal Mood/Affect, Normal Cognition Neuro Extensive - Motor, Sensory, Reflexes: CN II-XII Intact, Normal Gait Psychiatric: Alert, Normal Affect, Normal Mood - Patient Data Result Diagrams: 10/01/17 08:50 10/01/17 08:50 *Q Meaningful Use (ADM) - VTE *Q VTE Criteria *Q: - Stroke *Q Stroke Criteria *Q: - AMI *Q AMI Criteria *Q: - Problem List (1) Pneumonia SNOMED Code(s): 779346044 ICD Code: J18.9 - PNEUMONIA, UNSPECIFIED ORGANISM Status: Acute Current Visit: Yes Qualifiers: Pneumonia type: due to unspecified organism Laterality: right Lung location: lower lobe of lung Qualified Code(s): J18.1 - Lobar pneumonia, unspecified organism (2) COPD (chronic obstructive pulmonary disease) SNOMED Code(s): 79999362 ICD Code: J44.9 - CHRONIC OBSTRUCTIVE PULMONARY DISEASE, UNSPECIFIED Status : Acute Current Visit: Yes Qualifiers: COPD type: COPD with acute lower respiratory infection Qualified Code(s): J44.0 - Chronic obstructive pulmonary disease with acute lower respiratory infection (3) Anxiety SNOMED Code(s): 10233745 ICD Code: F41.9 - ANXIETY DISORDER, UNSPECIFIED Status: Acute Current Visit: Yes Problem List Initiated/Reviewed/Updated: Yes Orders Last 24hrs: Active Orders 24 hr Category Date Time Status Intake and Output [RC] QSHIFT Care 10/01/17 12:30 Ordered Oxygen Therapy [RC] PRN Care 10/01/17 12:29 Ordered RT Aerosol Therapy [RC] ASDIRECTED Care 10/01/17 12:31 Ordered Telemetry Monitoring [Cardiac Monitoring] [RC] . Care 10/01/17 12:32 Ordered DIRECTED Up With Assistance [RC] ASDIRECTED Care 10/01/17 12:29 Ordered VTE/DVT Education [RC] PER UNIT ROUTINE Care 10/01/17 12:29 Ordered Vital Signs [RC] Q4H Care 10/01/17 12:29 Ordered Regular Diet [DIET] Diet 10/01/17 Lunch Ordered BASIC METABOLIC PANEL,BMP [CHEM] AM Lab 10/02/17 05:11 Ordered CBC WITH AUTO DIFF [HEME] AM Lab 10/02/17 05:11 Ordered Albuterol/Ipratropium [DuoNeb 3.0-0.5 MG/3 ML] Med 10/01/17 12:29 Ordered 3 ml NEB Q4HRRT PRN Enoxaparin [Lovenox] Med 10/01/17 12:30 Ordered 30 mg SUBCUT DAILY Fluticasone/Salmeterol [Advair Diskus 250-50] Med 10/01/17 12:45 Unverified DOSE UNIT RTE FREQ LORazepam [Ativan] Med 10/01/17 12:34 Ordered 0.25 mg PO BID PRN Levofloxacin/Dextrose 5%-Water [Levaquin in D5W 750 MG/ Med 10/02/17 12:45 Ordered 150 ML] 750 mg Premix Bag 1 bag IV Q24H Ondansetron [Zofran] Med 10/01/17 12:29 Ordered 4 mg IVPUSH Q4H PRN Resuscitation Status Routine Resus Stat 10/01/17 12:29 Ordered Medication Orders Albuterol/Ipratropium (Duoneb 3.0-0.5 Mg/3 Ml) 3 ml NEB Q4HRRT PRN PRN Reason: Shortness Of Breath/wheezing Enoxaparin Sodium (Lovenox) 40 mg SUBCUT Q24H SUNNY Sodium Chloride (Normal Saline) 1,000 mls @ 125 mls/hr IV STAT SUNNY Last Admin: 10/01/17 09:58 Dose: 125 mls/hr Levofloxacin/Dextrose 750 mg/ (Premix) 150 mls @ 100 mls/hr IV ONETIME ONE Stop: 10/01/17 12:57 Last Admin: 10/01/17 11:59 Dose: 100 mls/hr Levofloxacin/Dextrose 750 mg/ (Premix) 150 mls @ 100 mls/hr IV Q24H SUNNY Ondansetron HCl (Zofran) 4 mg IVPUSH Q4H PRN PRN Reason: Nausea Sodium Chloride (Saline Flush) 10 ml FLUSH ASDIRECTED PRN PRN Reason: Keep Vein Open Last Admin: 10/01/17 09:59 Dose: 10 ml Sodium Chloride (Saline Flush) 2.5 ml FLUSH ASDIRECTED PRN PRN Reason: Keep Vein Open Last Admin: 10/01/17 09:59 Dose: 2.5 ml Assessment/Plan Comment:: This 72 year old female admitted with worsening dyspnea and RLL CAP. 1. CAP, RLL: Will treat with Levaquin. BC pending. Will obtained sputum culture. Hypoxemia noted on ABG. Will monitor 2. COPD: new diagnosis, PFT reviewed with Andelin FEV1 1.41, noted to have marked obstruction defect. Pending pulmonary consult as outpatient in [place]. Will continue Advair 250/50. No wheezing heard on assessment. There also may be component of anxiety with dyspnea. Will trial some Ativan. ABG also showed slight respiratory alkalosis, which may be due to hyperventilation and anxiety. 3. Thyroid nodule: patient notified of cervical CT findings. will have PCP follow up and obtain US at this time. VTE prophylaxis: Lovenox. Dispo: 2-3 days pending improvement.
[2017-10-01] MEDS ORDERED: Ibuprofen 400 MG Tab PO PRN (12:56)
[2017-10-01] MEDS ORDERED: Acetaminophen 325 MG Tab PO PRN (12:56)
[2017-10-01] MEDS: Enoxaparin 40 MG/0.4 ML Syringe SUBCUT SCH (13:59)
[2017-10-01] MEDS: LORazepam 0.5 MG Tab PO PRN (15:34)
[2017-10-01] MEDS ORDERED: Fluticasone/Salmeterol 250-50 MCG Inhalation Powder 14/Diskus INH SCH (21:00)
[2017-10-02 06:01] LABS: CHLORIDE,CL 105 mmol/L (98-107); SODIUM,NA 137 mmol/L (136-145)
[2017-10-02] MEDS: LORazepam 0.5 MG Tab PO PRN (09:50)
--- NOTE | 2017-10-02 12:16 | PCM.DCSUM1 ---
Discharge Summary - Hospital Course HPI Initial Comments: Discharge Summary Date of admission: 10/01/2017 Date of discharge: 10/02/2017 Admitting diagnosis: #1. Community-acquired pneumonia right lower lobe #2. New onset COPD #3. Thyroid nodule appreciated on cervical CT in ER #4. #5. Discharge diagnoses: #1. Community-acquired pneumonia resolving #2. New onset COPD-patient had adverse side effect with increased dose of Advair , reduction of Advair dose patient is able to tolerate #3. Thyroid nodule-TSH appears to be within normal limits, recommend outpatient ultrasound to assess nodule #4. #5. Consultations: None Procedures: None Hospitalization course: Patient was admitted overnight secondary to community- acquired pneumonia of the right lower lobe, patient was started on Levaquin, patient never had an increase leukocytosis. The pneumonia was appreciated on CT. CT also picked up a thyroid nodule, a TSH that was done was within normal limits, recommend outpatient primary care ultrasound follow-up of the thyroid nodule. Patient did not show any clinical signs of thyrotoxicosis or hypothyroidism. Patient is also a new onset COPD patient. She was on Advair 250/ 50 however she did not appear to tolerate this as well, a reduction in her dose does appear to allow her to tolerate her Advair. Patient is also noted to being anxious with a possible depression component as such the patient is going to be started on Zoloft 25 mg to be titrated by her PCP once she is discharged, I will prescribe for her Ativan 0.5 mg to be taken 3 times a day when necessary for 10 days up until the patient is able to see her primary care provider. On patient was stable, didn't require any O2 support, and the decision was made to discharge the patient on oral Levaquin for 8 more days, Advair, Combivent for the patient's COPD, Zoloft 25 mg and Ativan 0.5 mg for the patient 's anxiety/possible depression type symptoms. Disposition on discharge: Home Condition on discharge: Stable Discharge medications: Advair, Combivent, Zoloft, Ativan, Levaquin Follow-up instructions: Follow-up with primary care provider within the next 2- 3 days. Patient should also have a outpatient ultrasound to assess the thyroid nodule seen on CT. - Discharge Data Discharge Date: 10/02/17 Discharge Disposition: Home, Self-Care 01 Condition: Stable - Patient Instructions Diet: Usual Diet as Tolerated Activity: As Tolerated Driving: Do Not Drive Showering/Bathing: May Shower Notify Provider of: Fever, Increased Pain, Swelling and Redness, Drainage, Nausea and/or Vomiting - Discharge Plan Prescriptions/Med Rec: Albuterol/Ipratropium [Combivent Respimat] 4 gm IH QID 30 Days #1 aer.w.adap Fluticasone/Salmeterol [Advair 100-50] 1 puff INH BID 30 Days #1 diskus Levofloxacin [Levaquin] 750 mg PO DAILY 8 Days #8 tab LORazepam [Ativan] 0.5 mg PO TID PRN 10 Days #30 tab PRN Reason: Anxiety Sertraline [Zoloft] 25 mg PO DAILY 30 Days #30 tablet Home Medications: Home Meds Albuterol/Ipratropium [Combivent Respimat] 4 gm IH QID 30 Days #1 aer.w.adap [Rx] Fluticasone/Salmeterol [Advair 100-50] 1 puff INH BID 30 Days #1 diskus [Rx] LORazepam [Ativan] 0.5 mg PO TID PRN 10 Days #30 tab 10/02/17 [Rx] Levofloxacin [Levaquin] 750 mg PO DAILY 8 Days #8 tab 10/02/17 [Rx] Sertraline [Zoloft] 25 mg PO DAILY 30 Days #30 tablet 10/02/17 [Rx] Referrals: [facility] [Outside] Mindy Rodriguez NP [Ordering Only Provider] - - Discharge Summary/Plan Comment DC Time >30 min.: No - Patient Data Vitals - Most Recent: Last Vital Signs Temp 36.3 C 10/02/17 08:00 Pulse 74 10/02/17 08:00 Resp 16 10/02/17 08:00 BP 111/61 10/02/17 08:00 Pulse Ox 97 10/02/17 08:00 Weight - Most Recent: 66.678 kg I&O - Last 24 hours: Intake & Output 10/01/17 10/02/17 10/02/17 22:59 06:59 14:59 Intake Total 966 450 Output Total 100 350 Balance 866 100 Lab Results - Last 24 hrs: Laboratory Results - last 24 hr 10/02/17 10/02/17 10/02/17 Range/Units 05:19 05:19 05:19 WBC 10.36 (4.0-11.0) K/uL RBC 3.58 L (4.30-5.90) M/uL Hgb 10.7 L (12.0-16.0) g/dL Hct 31.5 L (36.0-46.0) % MCV 88.0 (80.0-98.0) fL MCH 29.9 (27.0-32.0) pg MCHC 34.0 (31.0-37.0) g/dL RDW Std Deviation 51.5 (28.0-62.0) fl RDW Coeff of Anitha 16 H (11.0-15.0) % Plt Count 176 (150-400) K/uL MPV 9.80 (7.40-12.00) fL Neut % (Auto) 76.2 (48.0-80.0) % Lymph % (Auto) 14.7 L (16.0-40.0) % Robeson % (Auto) 8.0 (0.0-15.0) % Eos % (Auto) 1.0 (0.0-7.0) % Baso % (Auto) 0.1 (0.0-1.5) % Neut # (Auto) 7.9 H (1.4-5.7) K/uL Lymph # (Auto) 1.5 (0.6-2.4) K/uL Robeson # (Auto) 0.8 (0.0-0.8) K/uL Eos # (Auto) 0.1 (0.0-0.7) K/uL Baso # (Auto) 0.0 (0.0-0.1) K/uL Nucleated RBC % 0.0 /100WBC Nucleated RBCs # 0 K/uL Sodium 137 (136-145) mmol/L Potassium 3.6 (3.5-5.1) mmol/L Chloride 105 (98-107) mmol/L Carbon Dioxide 24.2 (21.0-32.0) mmol/L BUN 9 (7.0-18.0) mg/dL Creatinine 0.6 (0.6-1.0) mg/dL Est Cr Clr Drug Dosing 77.01 mL/min Estimated GFR (MDRD) > 60.0 ml/min Glucose 99 (74-106) mg/dL Calcium 8.1 L (8.5-10.1) mg/dL TSH 3rd Generation 2.23 (0.36-3.74) uIU/mL Med Orders - Current: Current Medications Acetaminophen (Tylenol) 650 mg PO Q6H PRN PRN Reason: Pain Albuterol/Ipratropium (Duoneb 3.0-0.5 Mg/3 Ml) 3 ml NEB Q4HRRT PRN PRN Reason: Shortness Of Breath/wheezing Last Admin: 10/02/17 10:12 Dose: 3 ml Enoxaparin Sodium (Lovenox) 40 mg SUBCUT Q24H SUNNY Last Admin: 10/01/17 13:59 Dose: 40 mg Sodium Chloride (Normal Saline) 1,000 mls @ 125 mls/hr IV STAT SUNNY Last Admin: 10/01/17 09:58 Dose: 125 mls/hr Levofloxacin/Dextrose 750 mg/ (Premix) 150 mls @ 100 mls/hr IV Q24H SUNNY Ibuprofen (Motrin) 400 mg PO Q6H PRN PRN Reason: Pain Lorazepam (Ativan) 0.25 mg PO BID PRN PRN Reason: anxiety/SOB Last Admin: 10/02/17 09:50 Dose: 0.25 mg Ondansetron HCl (Zofran) 4 mg IVPUSH Q4H PRN PRN Reason: Nausea Sodium Chloride (Saline Flush) 10 ml FLUSH ASDIRECTED PRN PRN Reason: Keep Vein Open Last Admin: 10/01/17 09:59 Dose: 10 ml Sodium Chloride (Saline Flush) 2.5 ml FLUSH ASDIRECTED PRN PRN Reason: Keep Vein Open Last Admin: 10/01/17 09:59 Dose: 2.5 ml Discontinued Medications Levofloxacin/Dextrose 750 mg/ (Premix) 150 mls @ 100 mls/hr IV ONETIME ONE Stop: 10/01/17 12:57 Last Admin: 10/01/17 11:59 Dose: 100 mls/hr Iopamidol (Isovue Multipack-370 (76%)) 50 ml IVPUSH ONETIME STA Stop: 10/01/17 10:29 Last Admin: 10/01/17 10:34 Dose: 50 ml Fluticasone/Salmeterol (Advair Diskus 250-50) 1 puff INH Q12HR SUNNY *Q Meaningful Use (DIS) - VTE *Q VTE Criteria *Q: - Stroke *Q Stroke Criteria *Q: - AMI *Q AMI Criteria *Q:
[2017-10-02] MEDS ORDERED: Levofloxacin/Dextrose 5%-Water 750 MG in Premix Bag 1 BAG IV SCH (12:45)
[2017-10-02] MEDS: Enoxaparin 40 MG/0.4 ML Syringe SUBCUT SCH (12:58)
== END 2017-10-02 15:00 | disposition home or self-care (01) | DRG 195 ==
LOC: MW.ED 08:22 → OBSVTOIN 11:49 → MW.MS 11:49
PROVIDERS: ADMIT Family Medicine; ATTEND Family Medicine
DX: J18.9 Pneumonia, unspecified organism (principal); R06.00 Dyspnea, unspecified; M54.2 Cervicalgia; M25.519 Pain in unspecified shoulder; J44.9 Chronic obstructive pulmonary disease, unspecified; E04.1 Nontoxic single thyroid nodule; F41.8 Other specified anxiety disorders; Z88.2 Allergy status to sulfonamides; Z79.899 Other long term (current) drug therapy
CPT/HCPCS: 36415; 36600; 71046; 71275; 72125; 80053; 82803; 83880; 84484; 85025; 85379; 85610; 87040 ×2; 93005; 96361; 99285; J7040; Q9967; 80048; 84443; 94640; 96365; 99284; A9270-GY; J1650; J1956

== ENCOUNTER 2017-10-16 17:29 | Emergency (ER) | payer MEDICARE, OTHER ==
--- NOTE | 2017-10-16 18:34 | EDM.PDOC ---
ED HPI GENERAL MEDICAL PROBLEM - General Chief Complaint: Upper Extremity Injury/Pain Stated Complaint: FELL AND POSSIBLY BROKEN WRIST Time Seen by Provider: 10/16/17 18:31 Source of Information: Reports: Patient, EMS - History of Present Illness INITIAL COMMENTS - FREE TEXT/NARRATIVE: HISTORY AND PHYSICAL: History of present illness: [Patient tripped on a rug in her home falling on outstretched hand she complains of 8 out of 10 pain to the left wrist denies head injury or loss of consciousness no fever nausea vomiting chills sweats obvious swelling and bruise over the distal radius ] Review of systems: As per history of present illness and below otherwise all systems reviewed and negative. Past medical history: As per history of present illness and as reviewed below otherwise noncontributory. Surgical history: As per history of present illness and as reviewed below otherwise noncontributory. Social history: No reported history of drug or alcohol abuse. Family history: As per history of present illness and as reviewed below otherwise noncontributory. Physical exam: HEENT: Atraumatic, normocephalic, pupils reactive, negative for conjunctival pallor or scleral icterus, mucous membranes moist, throat clear, neck supple, nontender, trachea midline. Lungs: Clear to auscultation, breath sounds equal bilaterally, chest nontender. Heart: S1S2, regular, negative for clicks, rubs, or JVD. Abdomen: Soft, nondistended, nontender. Negative for masses or hepatosplenomegaly. Negative for costovertebral tenderness. Pelvis: Stable nontender. Genitourinary: Deferred. Rectal: Deferred. Extremities: Atraumatic, negative for cords or calf pain. Neurovascular unremarkable. left splint provided via EMS noted limb is neurovascularly intact with moderate swelling and bruising over the distal radial head neurovascularly intact left upper extremity Neuro: Awake, alert, oriented. Cranial nerves II through XII unremarkable. Cerebellum unremarkable. Motor and sensory unremarkable throughout. Exam nonfocal. Diagnostics: [Left wrist 3 views ] Therapeutics: [ [facility] follow-up with orthopedist Spl[facility] ] Impression: [ impacted distal radial fracture closed ] Definitive disposition and diagnosis as appropriate pending reevaluation and review of above. Left Arm Pain Score (Numeric/FACES): 5 - Related Data Allergies Allergy/AdvReac Type Severity Reaction Status Date / Time Sulfa (Sulfonamide Allergy Redness Verified 10/16/17 17:37 Antibiotics) Home Meds: Home Meds Fluticasone/Salmeterol [Advair 100-50] 1 puff INH BID 30 Days #1 diskus [Rx] LORazepam [Ativan] 0.5 mg PO TID PRN 10 Days #30 tab 10/02/17 [Rx] Levofloxacin [Levaquin] 750 mg PO DAILY 8 Days #8 tab 10/02/17 [Rx] Sertraline [Zoloft] 25 mg PO DAILY 30 Days #30 tablet 10/02/17 [Rx] Past Medical History HEENT History: Reports: Impaired Vision Cardiovascular History: Reports: None Respiratory History: Reports: Pneumonia, Recurrent, SOB Gastrointestinal History: Reports: None Other Gastrointestinal History: Indigestion Genitourinary History: Reports: None EDGE KITTER History: Reports: Musculoskeletal History: Reports: Fracture Other Musculoskeletal History: FX of right humerus, scoliosis Neurological History: Reports: None Psychiatric History: Reports: Anxiety Hematologic History: Reports: None Immunologic History: Reports: None Oncologic (Cancer) History: Reports: None Dermatologic History: Reports: None - Infectious Disease History Infectious Disease History: Reports: Chicken Pox, Measles, Mumps - Past Surgical History Head Surgeries/Procedures: Reports: None HEENT Surgical History: Reports: Tonsillectomy Musculoskeletal Surgical History: Reports: Other (See Below) Other Musculoskeletal Surgeries/Procedures:: R arm fracture surgery Social & Family History - Family History Family Medical History: Noncontributory - Tobacco Use Smoking Status *Q: Never Smoker Second Hand Smoke Exposure: No - Caffeine Use Caffeine Use: Reports: Soda - Alcohol Use Days Per Week of Alcohol Use: 7 Number of Drinks Per Day: 1 Total Drinks Per Week: 7 - Recreational Drug Use Recreational Drug Use: No - Living Situation & Occupation Living situation: Reports: Alone Occupation: Retired Review of Systems - Review of Systems Review Of Systems: ROS reveals no pertinent complaints other than HPI. ED EXAM, GENERAL - Physical Exam Exam: See Below Course - Vital Signs Last Recorded V/S: Last Vital Signs Temp 98.1 F 10/16/17 18:30 Pulse 72 10/16/17 18:30 Resp 18 10/16/17 18:30 BP 129/69 10/16/17 18:30 Pulse Ox 96 10/16/17 18:30 - Orders/Labs/Meds Orders: Active Orders 24 hr Category Date Time Status Wrist Comp Min 3V Lt [CR] Stat Exams 10/16/17 17:32 Taken Departure - Departure Time of Disposition: 18:33 Disposition: Home, Self-Care 01 Condition: Good Clinical Impression: Distal radius fracture, left - Discharge Information Referrals: Mindy Rodriguez NP [Primary Care Provider] - Forms: ED Department Discharge Additional Instructions: Medication as prescribed Return if symptoms persist or worsen Follow-up with orthopedist, call for appointment and appropriate follow-up at number provided below Ice 20 minute intervals 3 times daily [facility] [address], [address] [place] [address] my orthopedic The following information is given to patients seen in the emergency department who are being discharged to home. This information is to outline your options for follow-up care. We provide all patients seen in our emergency department with a follow-up referral. The need for follow-up, as well as the timing and circumstances, are variable depending upon the specifics of your emergency department visit. If you don't have a primary care physician on staff, we will provide you with a referral. We always advise you to contact your personal physician following an emergency department visit to inform them of the circumstance of the visit and for follow-up with them and/or the need for any referrals to a consulting specialist. The emergency department will also refer you to a specialist when appropriate. This referral assures that you have the opportunity for follow-up care with a specialist. All of these measure are taken in an effort to provide you with optimal care, which includes your follow-up. Under all circumstances we always encourage you to contact your private physician who remains a resource for coordinating your care. When calling for follow-up care, please make the office aware that this follow-up is from your recent emergency room visit. If for any reason you are refused follow-up, please contact the [facility] emergency department at and asked to speak to the emergency department charge nurse. - My Orders Last 24 Hours: My Active Orders 10/16/17 17:32 Wrist Comp Min 3V Lt [CR] Stat - Assessment/Plan Last 24 Hours: My Active Orders 10/16/17 17:32 Wrist Comp Min 3V Lt [CR] Stat
--- NOTE | 2017-10-18 11:50 | CR ---
EXAM DATE: 10/16/17 PATIENT'S AGE: 72 Patient: ROBERT LARA Facility: [place], [place] Site . Site : [id number] Study: XRay Extremity Left wrist [id number]/31/2018 5:54:18 PM Ordering Physician: Nichole Kuo Final Report: HISTORY: Pain, fall. FINDINGS: Three views of the left wrist demonstrate osteopenia bone. There is mild impaction fracture of the distal radial metaphysis with cortical break along the dorsal surface. There is minimal dorsal angulation of the distal fracture fragment. No definite extension to the articular surface. The ulna is intact. There is decreased joint space of the triscaphe and 1st carpometacarpal joint. IMPRESSION: Mild impaction fracture of the distal radius with mild dorsal angulation of the distal fracture fragment. Dictated by Adrienne Godoy MD @ 10/16/2017 5:57:01 PM Dictated by: Adrienne Godoy MD @ 10/16/2017 17:57:06 (Electronic Signature) Report Signed by Proxy. AMINATA
== END 2017-10-16 19:50 | disposition home or self-care (01) ==
LOC: MW.ED 17:29
DX: S52.502A Unspecified fracture of the lower end of left radius, initial encounter for closed fracture (principal); Z88.2 Allergy status to sulfonamides; Z79.899 Other long term (current) drug therapy; W18.09XA Striking against other object with subsequent fall, initial encounter
CPT/HCPCS: 73110-26-LT; 73110-LT; 99283

== ENCOUNTER 2020-05-14 14:30 | Observation (INO) | payer MEDICARE, OTHER ==
[2020-05-14] MEDS ORDERED: Sodium Chloride 0.9% 2.5 ML Syringe FLUSH PRN (14:36)
[2020-05-14] MEDS ORDERED: Sodium Chloride 0.9% 10 ML Syringe FLUSH PRN (14:36)
--- NOTE | 2020-05-14 14:43 | EDM.PDOC ---
ED HPI GENERAL MEDICAL PROBLEM - General Chief Complaint: General Stated Complaint: EMS ARRIVAL Time Seen by Provider: 05/14/20 14:31 - History of Present Illness INITIAL COMMENTS - FREE TEXT/NARRATIVE: 75-year-old female with a charted history of pneumonia and anxiety but no other significant medical history who is presenting with altered mental status. History is somewhat limited. EMS reports that she was found down outside her apartment incontinent of stool. Patient does not recall this she denies any physical complaint. She denies feeling confused. She states that she does live in an apartment building that her sister lives at the other side of the apartment and that she does live alone. She states that she has been taking the medication for her memory for the last 2 years but does not recall what it is. She denies any other medications or medical problems. She denies any physical symptoms at this time. No exacerbating or alleviating factors radiation or other associated symptoms. Per Kathy Clark [phone] (pt's daughter and POA): The patient typically avoids MDs. Pt has years of rhinorrhea and dry cough. No change in this. Pt is not currently on any Rx meds. She takes daily Privigen (a memory drug) as well as mucinex for her cough. Patient lives at a senior care community. However, its is not assisted living. Patient's sister spoke to her last night and she was doing OK but having some diarrhea. The patient has had a gradual cognitive decline over the last few years but has accelerated during the isolation 08/20 COVID. Family also noticed a decline this weekend. However, they had not seen her for some time. She normally is very aware of politics and watches a lot of [email or web address]. She can normally discuss current events so being disoriented to the year is unusual. - Related Data Allergies Allergy/AdvReac Type Severity Reaction Status Date / Time Sulfa (Sulfonamide Allergy Redness Verified 05/14/20 14:36 Antibiotics) Home Meds: Home Meds Fluticasone/Salmeterol [Advair 100-50] 1 puff INH BID 30 Days #1 diskus 10/02/17 [Rx] LORazepam [Ativan] 0.5 mg PO TID PRN 10 Days #30 tab 10/02/17 [Rx] Sertraline [Zoloft] 25 mg PO DAILY 30 Days #30 tablet 10/02/17 [Rx] levoFLOXacin [Levaquin] 750 mg PO DAILY 8 Days #8 tab 10/02/17 [Rx] Past Medical History HEENT History: Reports: Impaired Vision Cardiovascular History: Reports: None Respiratory History: Reports: Pneumonia, Recurrent, SOB Gastrointestinal History: Reports: None Other Gastrointestinal History: Indigestion Genitourinary History: Reports: None 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: Musculoskeletal History: Reports: Fracture Other Musculoskeletal History: FX of right humerus, scoliosis Neurological History: Reports: None Psychiatric History: Reports: Anxiety Hematologic History: Reports: None Immunologic History: Reports: None Oncologic (Cancer) History: Reports: None Dermatologic History: Reports: None - Infectious Disease History Infectious Disease History: Reports: Chicken Pox, Measles, Mumps - Past Surgical History Head Surgeries/Procedures: Reports: None HEENT Surgical History: Reports: Tonsillectomy Musculoskeletal Surgical History: Reports: Other (See Below) Other Musculoskeletal Surgeries/Procedures:: R arm fracture surgery Social & Family History - Family History Family Medical History: Noncontributory - Caffeine Use Caffeine Use: Reports: Soda - Living Situation & Occupation Living situation: Reports: Alone Occupation: Retired ED ROS GENERAL - Review of Systems Review Of Systems: See Below Free Text/Narrative/Comment: General: No fever. Skin: No rash. Eyes: No vision problems. ENT: No sore throat. Neck: No neck stiffness. Respiratory: No shortness of breath. Cardiac: No chest pain. Gastrointestinal: No nausea, vomiting or abdominal pain. Urinary: No dysuria. Musculoskeletal: No myalgias/arthralgias. Neurologic: No headache. ED EXAM, GENERAL - Physical Exam Exam: See Below Free Text/Narrative:: General Appearance: No acute distress, appears comfortable Skin: No rash HEENT: Normocephalic/atraumatic, sclera anicteric, mucous membranes moist Neck: Normal range of motion Chest and Lungs: Bilateral breath sounds, clear to auscultation Cardiovascular: Regular rate and rhythm, no murmur Abdomen: Soft, non-tender Back: Normal Musculoskeletal: No edema or tenderness Neurologic: Equal strength in all 5 extremities, sensation grossly intact, facies symmetric, alert and oriented x2 unable to answer date also unable to answer simple questions Psychiatric: Appropriate, cooperative #1 Interpretation EKG Date: 05/14/20 Time: 15:30 EKG Interpretation Comments: Normal sinus rhythm rate of 93 normal axis and intervals no acute ischemia Course - Vital Signs Last Recorded V/S: Last Vital Signs Temp 97.8 F 05/14/20 14:32 Pulse 105 H 05/14/20 16:37 Resp 18 05/14/20 14:32 BP 144/82 H 05/14/20 16:37 Pulse Ox 96 05/14/20 16:37 - Orders/Labs/Meds Orders: Active Orders 24 hr Category Date Time Status Patient Status [ADT] Routine ADT 05/14/20 18:25 Active EKG Documentation Completion [RC] STAT Care 05/14/20 14:36 Active Abdomen Pelvis w Cont [CT] Stat Exams 05/14/20 18:22 Ordered Sodium Chloride 0.9% [Saline Flush] Med 05/14/20 14:36 Active 10 ml FLUSH ASDIRECTED PRN Sodium Chloride 0.9% [Saline Flush] Med 05/14/20 14:36 Active 2.5 ml FLUSH ASDIRECTED PRN Saline Lock Insert [OM.PC] Stat Oth 05/14/20 14:36 Ordered Medication Orders Sodium Chloride (Saline Flush) 10 ml FLUSH ASDIRECTED PRN PRN Reason: Keep Vein Open Last Admin: 05/14/20 15:12 Dose: 10 ml Documented by: ADILIA Sodium Chloride (Saline Flush) 2.5 ml FLUSH ASDIRECTED PRN PRN Reason: Keep Vein Open Last Admin: 05/14/20 15:12 Dose: 2.5 ml Documented by: ADILIA Labs: Laboratory Tests 05/14/20 05/14/20 05/14/20 Range/Units 14:54 14:54 15:00 WBC 16.51 H (4.0-11.0) K/uL RBC 4.58 (4.30-5.90) M/uL Hgb 15.5 (12.0-16.0) g/dL Hct 44.4 (36.0-46.0) % MCV 96.9 (80.0-98.0) fL MCH 33.8 H (27.0-32.0) pg MCHC 34.9 (31.0-37.0) g/dL RDW Std Deviation 46.1 (28.0-62.0) fl RDW Coeff of Anitha 13 (11.0-15.0) % Plt Count 310 (150-400) K/uL MPV 10.30 (7.40-12.00) fL Neut % (Auto) 84.3 H (48.0-80.0) % Lymph % (Auto) 8.7 L (16.0-40.0) % [place] % (Auto) 6.9 (0.0-15.0) % Eos % (Auto) 0.0 (0.0-7.0) % Baso % (Auto) 0.1 (0.0-1.5) % Neut # (Auto) 13.9 H (1.4-5.7) K/uL Lymph # (Auto) 1.4 (0.6-2.4) K/uL [place] # (Auto) 1.1 H (0.0-0.8) K/uL Eos # (Auto) 0.0 (0.0-0.7) K/uL Baso # (Auto) 0.0 (0.0-0.1) K/uL Nucleated RBC % 0.0 /100WBC Nucleated RBCs # 0 K/uL Sodium (136-145) mmol/L Potassium (3.5-5.1) mmol/L Chloride (98-107) mmol/L Carbon Dioxide (21.0-32.0) mmol/L BUN (7.0-18.0) mg/dL Creatinine (0.6-1.0) mg/dL Est Cr Clr Drug Dosing mL/min Estimated GFR (MDRD) ml/min Glucose (74-106) mg/dL Calcium (8.5-10.1) mg/dL Magnesium (1.8-2.4) mg/dL Total Bilirubin (0.2-1.0) mg/dL AST (15-37) IU/L ALT (14-63) IU/L Alkaline Phosphatase (46-116) U/L Creatine Kinase (26-308) U/L Troponin I (0.000-0.056) ng/mL Total Protein (6.4-8.2) g/dL Albumin (3.4-5.0) g/dL Globulin (2.6-4.0) g/dL Albumin/Globulin Ratio (0.9-1.6) Urine Color YELLOW Urine Appearance CLEAR Urine pH 6.5 (5.0-8.0) Ur Specific [place] 1.010 (1.001-1.035) Urine Protein NEGATIVE (NEGATIVE) mg/dL Urine Glucose (UA) NEGATIVE (NEGATIVE) mg/dL Urine Ketones 15 H (NEGATIVE) mg/dL Urine Occult Blood NEGATIVE (NEGATIVE) Urine Nitrite NEGATIVE (NEGATIVE) Urine Bilirubin NEGATIVE (NEGATIVE) Urine Urobilinogen 0.2 (<2.0) EU/dL Ur Leukocyte Esterase NEGATIVE (NEGATIVE) Urine RBC 0-2 (0-2/HPF) Urine WBC 0-2 (0-5/HPF) Ur Epithelial Cells RARE (NONE-FEW) Urine Bacteria RARE (NEGATIVE) Urine Opiates Screen NEGATIVE (NEGATIVE) Ur Oxycodone Screen NEGATIVE (NEGATIVE) Urine Methadone Screen NEGATIVE (NEGATIVE) Ur Barbiturates Screen NEGATIVE (NEGATIVE) Ur Phencyclidine Scrn NEGATIVE (NEGATIVE) Ur Amphetamine Screen NEGATIVE (NEGATIVE) U Methamphetamines Scrn NEGATIVE (NEGATIVE) U Benzodiazepines Scrn NEGATIVE (NEGATIVE) U Cocaine Metab Screen NEGATIVE (NEGATIVE) U Marijuana (THC) Screen NEGATIVE (NEGATIVE) Ethyl Alcohol mg/dL SARS-CoV-2 RNA (SAMIR) (NEGATIVE) 05/14/20 05/14/20 05/14/20 Range/Units 15:00 15:00 15:05 WBC (4.0-11.0) K/uL RBC (4.30-5.90) M/uL Hgb (12.0-16.0) g/dL Hct (36.0-46.0) % MCV (80.0-98.0) fL MCH (27.0-32.0) pg MCHC (31.0-37.0) g/dL RDW Std Deviation (28.0-62.0) fl RDW Coeff of Anitha (11.0-15.0) % Plt Count (150-400) K/uL MPV (7.40-12.00) fL Neut % (Auto) (48.0-80.0) % Lymph % (Auto) (16.0-40.0) % [place] % (Auto) (0.0-15.0) % Eos % (Auto) (0.0-7.0) % Baso % (Auto) (0.0-1.5) % Neut # (Auto) (1.4-5.7) K/uL Lymph # (Auto) (0.6-2.4) K/uL [place] # (Auto) (0.0-0.8) K/uL Eos # (Auto) (0.0-0.7) K/uL Baso # (Auto) (0.0-0.1) K/uL Nucleated RBC % /100WBC Nucleated RBCs # K/uL Sodium 137 (136-145) mmol/L Potassium 3.6 (3.5-5.1) mmol/L Chloride 101 (98-107) mmol/L Carbon Dioxide 22.1 (21.0-32.0) mmol/L BUN 9 (7.0-18.0) mg/dL Creatinine 0.9 (0.6-1.0) mg/dL Est Cr Clr Drug Dosing 50.90 mL/min Estimated GFR (MDRD) > 60.0 ml/min Glucose 121 H (74-106) mg/dL Calcium 9.1 (8.5-10.1) mg/dL Magnesium 2.0 (1.8-2.4) mg/dL Total Bilirubin 1.6 H (0.2-1.0) mg/dL AST 29 (15-37) IU/L ALT 27 (14-63) IU/L Alkaline Phosphatase 104 (46-116) U/L Creatine Kinase 597 H (26-308) U/L Troponin I < 0.050 (0.000-0.056) ng/mL Total Protein 7.3 (6.4-8.2) g/dL Albumin 4.6 (3.4-5.0) g/dL Globulin 2.7 (2.6-4.0) g/dL Albumin/Globulin Ratio 1.7 H (0.9-1.6) Urine Color Urine Appearance Urine pH (5.0-8.0) Ur Specific [place] (1.001-1.035) Urine Protein (NEGATIVE) mg/dL Urine Glucose (UA) (NEGATIVE) mg/dL Urine Ketones (NEGATIVE) mg/dL Urine Occult Blood (NEGATIVE) Urine Nitrite (NEGATIVE) Urine Bilirubin (NEGATIVE) Urine Urobilinogen (<2.0) EU/dL Ur Leukocyte Esterase (NEGATIVE) Urine RBC (0-2/HPF) Urine WBC (0-5/HPF) Ur Epithelial Cells (NONE-FEW) Urine Bacteria (NEGATIVE) Urine Opiates Screen (NEGATIVE) Ur Oxycodone Screen (NEGATIVE) Urine Methadone Screen (NEGATIVE) Ur Barbiturates Screen (NEGATIVE) Ur Phencyclidine Scrn (NEGATIVE) Ur Amphetamine Screen (NEGATIVE) U Methamphetamines Scrn (NEGATIVE) U Benzodiazepines Scrn (NEGATIVE) U Cocaine Metab Screen (NEGATIVE) U Marijuana (THC) Screen (NEGATIVE) Ethyl Alcohol <3 mg/dL SARS-CoV-2 RNA (SAMIR) NEGATIVE (NEGATIVE) Meds: Medications Generic Name Dose Route Start Last Admin Trade Name Freq PRN Reason Stop Dose Admin Sodium Chloride 10 ml 05/14/20 14:36 05/14/20 15:12 Saline Flush FLUSH 10 ml ASDIRECTED PRN Administration Keep Vein Open Sodium Chloride 2.5 ml 05/14/20 14:36 05/14/20 15:12 Saline Flush FLUSH 2.5 ml ASDIRECTED PRN Administration Keep Vein Open Departure - Departure Time of Disposition: 19:04 Disposition: Refer to Observation Condition: Good Clinical Impression: Altered mental status - Discharge Information Sepsis Event Note (ED) - Evaluation Sepsis Screening Result: No Definite Risk - Focused Exam Vital Signs: Vital Signs Temp Pulse Resp BP Pulse Ox 05/14/20 16:37 105 H 144/82 H 96 05/14/20 15:33 99 133/70 98 05/14/20 15:15 98 130/73 98 05/14/20 14:32 97.8 F 104 H 18 150/79 H 96 - My Orders Last 24 Hours: My Active Orders 05/14/20 14:36 EKG Documentation Completion [RC] STAT Sodium Chloride 0.9% [Saline Flush] 10 ml FLUSH ASDIRECTED PRN Sodium Chloride 0.9% [Saline Flush] 2.5 ml FLUSH ASDIRECTED PRN Saline Lock Insert [OM.PC] Stat 05/14/20 18:22 Abdomen Pelvis w Cont [CT] Stat 05/14/20 18:25 Patient Status [ADT] Routine - Assessment/Plan Last 24 Hours: My Active Orders 05/14/20 14:36 EKG Documentation Completion [RC] STAT Sodium Chloride 0.9% [Saline Flush] 10 ml FLUSH ASDIRECTED PRN Sodium Chloride 0.9% [Saline Flush] 2.5 ml FLUSH ASDIRECTED PRN Saline Lock Insert [OM.PC] Stat 05/14/20 18:22 Abdomen Pelvis w Cont [CT] Stat 05/14/20 18:25 Patient Status [ADT] Routine Assessment:: 75-year-old female with unclear history presenting with altered mental status and confusion. Nontoxic on exam given unclear downtime CK ordered. Infection considered CBC CMP urinalysis chest x-ray pending ACS felt unlikely but troponin EKG ordered as well. CT scan of the brain given her altered mental status patient denies any complaint and exam is atraumatic. No known blood thinners. Patient's labs are notable for leukocytosis with neutrophil predominance but are otherwise unremarkable Covid negative urinalysis negative. Given her continued altered mental status with plan for admission for further monitoring evaluation patient discussed in full with the hospitalist who agrees with admission and request CT abdomen pelvis and this is been ordered as well. CT abdomen pelvis result to be reviewed by Dr. Stanley.
[2020-05-14 15:40] LABS: BLOOD UREA NITROGEN,BUN 9 mg/dL (7.0-18.0); CARBON DIOXIDE,CO2 22.1 mmol/L (21.0-32.0); CHLORIDE,CL 101 mmol/L (98-107); GLUCOSE RANDOM 121 mg/dL (74-106); POTASSIUM,K 3.6 mmol/L (3.5-5.1); SODIUM,NA 137 mmol/L (136-145)
--- NOTE | 2020-05-14 16:36 | CT ---
INDICATION: Confusion TECHNIQUE: CT head without contrast. COMPARISON: None. FINDINGS: CSF spaces: Within normal limits for age. Brain parenchyma and extra-axial spaces: The santos-white differentiation is normal. No sign of mass, hemorrhage, or midline shift. No extra-axial fluid collection. Skull base and calvarium: The visualized paranasal sinuses and mastoid air cells demonstrate no acute or significant findings. The visualized orbits are grossly unremarkable. No skull fractures. IMPRESSION: Unremarkable noncontrast head CT. Please note that all CT scans at this facility use dose modulation, iterative reconstruction, and/or weight-based dosing when appropriate to reduce radiation dose to as low as reasonably achievable. Dictated by Hari Bucio MD @ May 14 2020 4:31PM Signed by Dr. Hari Bucio @ May 14 2020 4:34PM
--- NOTE | 2020-05-14 18:16 | CR ---
INDICATION: Confusion, cough TECHNIQUE: Chest 2 views. COMPARISON: June 28, 2018 FINDINGS: Cardiovascular and mediastinum: Heart size and vasculature are normal in caliber and appearance. Mediastinum is within normal limits. Lungs and pleural spaces: Lungs are clear. No sign of infiltrate or mass. No sign of pleural effusion. No pneumothorax. Bones and soft tissues: Scoliosis. Osteopenia. IMPRESSION: No sign of acute disease. Dictated by Gaby David MD @ May 14 2020 6:03PM (Electronically Signed)
--- NOTE | 2020-05-14 18:57 | PCM.HP.2 ---
<Nakul Vanessa M - Last Filed: 05/14/20 19:36> H&P History of Present Illness - General Date of Service: 05/14/20 Admit Problem/Dx: Admission Diagnosis/Problem Admission Diagnosis/Problem Altered mental status Source of Information: Patient - History of Present Illness Initial Comments - Free Text/Narative: 75-year-old female presents via EMS after found on the ground outside of her apartment with stool incontinence. She reports no significant PMH. Patient does not recall falling today or being found incontinent of stool. History-taking is limited as patient does not provide many details and does not recall very many details from today. She reports living in prison community and reports her sister also lives in the same apartment. Patient does endorse having 4-5 bouts of diarrhea daily for the past 3-4 days. She denies having any fevers, chills, sore throat, SOB, chest pain, nausea, vomiting, abdominal pain, blood in stool, blood in urine, numbness or tingling in extremities. She denies having any complaints at this time. She is able to identify herself and her location, however, is unable to correctly identify the year or her date. In the ER, WBC count 16, CK 597, total bilirubin 1.6, UA unremarkable, UDS unremarkable, CXR negative, CT head negative and COVID19 test negative. [address] abd/pelvis is pending. Patient admitted for further evaluation and treatment. 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: Musculoskeletal History: Reports: Fracture Other Musculoskeletal History: FX of right humerus, scoliosis Neurological History: Reports: None Psychiatric History: Reports: Anxiety Hematologic History: Reports: None Immunologic History: Reports: None Oncologic (Cancer) History: Reports: None Dermatologic History: Reports: None - Infectious Disease History Infectious Disease History: Reports: Chicken Pox, Measles, Mumps - Past Surgical History Head Surgeries/Procedures: Reports: None HEENT Surgical History: Reports: Tonsillectomy Musculoskeletal Surgical History: Reports: Other (See Below) Other Musculoskeletal Surgeries/Procedures:: R arm fracture surgery Social & Family History - Family History Family Medical History: Noncontributory - Tobacco Use Tobacco Use Status *Q: Never Tobacco User - Caffeine Use Caffeine Use: Reports: Soda - Recreational Drug Use Recreational Drug Use: No - Living Situation & Occupation Living situation: Reports: Alone Occupation: Retired H&P Review of Systems - Review of Systems: Review Of Systems: Comprehensive ROS is negative, except as noted in HPI. Exam - Exam Exam: See Below - Vital Signs Vital Signs: Last Vital Signs Temp 36.6 C 05/14/20 14:32 Pulse 105 H 05/14/20 16:37 Resp 18 05/14/20 14:32 BP 144/82 H 05/14/20 16:37 Pulse Ox 96 05/14/20 16:37 Weight: 68.039 kg - Exam General: Alert, Cooperative, Other (AO x 2. No acute distress.) HEENT: Conjunctiva Clear, EOMI, Hearing Intact, Posterior Pharynx Clear, Pupils Equal, Pupils Reactive Neck: Supple, Trachea Midline Lungs: Clear to Auscultation, Normal Respiratory Effort Cardiovascular: Regular Rhythm, Tachycardia GI/Abdominal Exam: Normal Bowel Sounds, Soft, Non-Tender, No Distention Extremities: Normal Inspection, No Pedal Edema Peripheral Pulses: 2+: Radial (L), Radial (R) Skin: Warm, Dry, Intact Neurological: Cranial Nerves Intact, Strength Equal Bilateral, Normal Speech, Normal Tone Neuro Extensive - Mental Status: Alert, Oriented x3, Normal Mood/Affect Psychiatric: Alert, Normal Affect, Normal Mood - Patient Data Lab Results Last 24 hrs: Laboratory Results - last 24 hr 05/14/20 05/14/20 05/14/20 Range/Units 14:54 14:54 15:00 WBC 16.51 H (4.0-11.0) K/uL RBC 4.58 (4.30-5.90) M/uL Hgb 15.5 (12.0-16.0) g/dL Hct 44.4 (36.0-46.0) % MCV 96.9 (80.0-98.0) fL MCH 33.8 H (27.0-32.0) pg MCHC 34.9 (31.0-37.0) g/dL RDW Std Deviation 46.1 (28.0-62.0) fl RDW Coeff of Anitha 13 (11.0-15.0) % Plt Count 310 (150-400) K/uL MPV 10.30 (7.40-12.00) fL Neut % (Auto) 84.3 H (48.0-80.0) % Lymph % (Auto) 8.7 L (16.0-40.0) % [place] % (Auto) 6.9 (0.0-15.0) % Eos % (Auto) 0.0 (0.0-7.0) % Baso % (Auto) 0.1 (0.0-1.5) % Neut # (Auto) 13.9 H (1.4-5.7) K/uL Lymph # (Auto) 1.4 (0.6-2.4) K/uL [place] # (Auto) 1.1 H (0.0-0.8) K/uL Eos # (Auto) 0.0 (0.0-0.7) K/uL Baso # (Auto) 0.0 (0.0-0.1) K/uL Nucleated RBC % 0.0 /100WBC Nucleated RBCs # 0 K/uL Sodium (136-145) mmol/L Potassium (3.5-5.1) mmol/L Chloride (98-107) mmol/L Carbon Dioxide (21.0-32.0) mmol/L BUN (7.0-18.0) mg/dL Creatinine (0.6-1.0) mg/dL Est Cr Clr Drug Dosing mL/min Estimated GFR (MDRD) ml/min Glucose (74-106) mg/dL Calcium (8.5-10.1) mg/dL Magnesium (1.8-2.4) mg/dL Total Bilirubin (0.2-1.0) mg/dL AST (15-37) IU/L ALT (14-63) IU/L Alkaline Phosphatase (46-116) U/L Creatine Kinase (26-308) U/L Troponin I (0.000-0.056) ng/mL Total Protein (6.4-8.2) g/dL Albumin (3.4-5.0) g/dL Globulin (2.6-4.0) g/dL Albumin/Globulin Ratio (0.9-1.6) Urine Color YELLOW Urine Appearance CLEAR Urine pH 6.5 (5.0-8.0) Ur Specific [place] 1.010 (1.001-1.035) Urine Protein NEGATIVE (NEGATIVE) mg/dL Urine Glucose (UA) NEGATIVE (NEGATIVE) mg/dL Urine Ketones 15 H (NEGATIVE) mg/dL Urine Occult Blood NEGATIVE (NEGATIVE) Urine Nitrite NEGATIVE (NEGATIVE) Urine Bilirubin NEGATIVE (NEGATIVE) Urine Urobilinogen 0.2 (<2.0) EU/dL Ur Leukocyte Esterase NEGATIVE (NEGATIVE) Urine RBC 0-2 (0-2/HPF) Urine WBC 0-2 (0-5/HPF) Ur Epithelial Cells RARE (NONE-FEW) Urine Bacteria RARE (NEGATIVE) Urine Opiates Screen NEGATIVE (NEGATIVE) Ur Oxycodone Screen NEGATIVE (NEGATIVE) Urine Methadone Screen NEGATIVE (NEGATIVE) Ur Barbiturates Screen NEGATIVE (NEGATIVE) Ur Phencyclidine Scrn NEGATIVE (NEGATIVE) Ur Amphetamine Screen NEGATIVE (NEGATIVE) U Methamphetamines Scrn NEGATIVE (NEGATIVE) U Benzodiazepines Scrn NEGATIVE (NEGATIVE) U Cocaine Metab Screen NEGATIVE (NEGATIVE) U Marijuana (THC) Screen NEGATIVE (NEGATIVE) Ethyl Alcohol mg/dL SARS-CoV-2 RNA (SAMIR) (NEGATIVE) 05/14/20 05/14/20 05/14/20 Range/Units 15:00 15:00 15:05 WBC (4.0-11.0) K/uL RBC (4.30-5.90) M/uL Hgb (12.0-16.0) g/dL Hct (36.0-46.0) % MCV (80.0-98.0) fL MCH (27.0-32.0) pg MCHC (31.0-37.0) g/dL RDW Std Deviation (28.0-62.0) fl RDW Coeff of Anitha (11.0-15.0) % Plt Count (150-400) K/uL MPV (7.40-12.00) fL Neut % (Auto) (48.0-80.0) % Lymph % (Auto) (16.0-40.0) % [place] % (Auto) (0.0-15.0) % Eos % (Auto) (0.0-7.0) % Baso % (Auto) (0.0-1.5) % Neut # (Auto) (1.4-5.7) K/uL Lymph # (Auto) (0.6-2.4) K/uL [place] # (Auto) (0.0-0.8) K/uL Eos # (Auto) (0.0-0.7) K/uL Baso # (Auto) (0.0-0.1) K/uL Nucleated RBC % /100WBC Nucleated RBCs # K/uL Sodium 137 (136-145) mmol/L Potassium 3.6 (3.5-5.1) mmol/L Chloride 101 (98-107) mmol/L Carbon Dioxide 22.1 (21.0-32.0) mmol/L BUN 9 (7.0-18.0) mg/dL Creatinine 0.9 (0.6-1.0) mg/dL Est Cr Clr Drug Dosing 50.90 mL/min Estimated GFR (MDRD) > 60.0 ml/min Glucose 121 H (74-106) mg/dL Calcium 9.1 (8.5-10.1) mg/dL Magnesium 2.0 (1.8-2.4) mg/dL Total Bilirubin 1.6 H (0.2-1.0) mg/dL AST 29 (15-37) IU/L ALT 27 (14-63) IU/L Alkaline Phosphatase 104 (46-116) U/L Creatine Kinase 597 H (26-308) U/L Troponin I < 0.050 (0.000-0.056) ng/mL Total Protein 7.3 (6.4-8.2) g/dL Albumin 4.6 (3.4-5.0) g/dL Globulin 2.7 (2.6-4.0) g/dL Albumin/Globulin Ratio 1.7 H (0.9-1.6) Urine Color Urine Appearance Urine pH (5.0-8.0) Ur Specific [place] (1.001-1.035) Urine Protein (NEGATIVE) mg/dL Urine Glucose (UA) (NEGATIVE) mg/dL Urine Ketones (NEGATIVE) mg/dL Urine Occult Blood (NEGATIVE) Urine Nitrite (NEGATIVE) Urine Bilirubin (NEGATIVE) Urine Urobilinogen (<2.0) EU/dL Ur Leukocyte Esterase (NEGATIVE) Urine RBC (0-2/HPF) Urine WBC (0-5/HPF) Ur Epithelial Cells (NONE-FEW) Urine Bacteria (NEGATIVE) Urine Opiates Screen (NEGATIVE) Ur Oxycodone Screen (NEGATIVE) Urine Methadone Screen (NEGATIVE) Ur Barbiturates Screen (NEGATIVE) Ur Phencyclidine Scrn (NEGATIVE) Ur Amphetamine Screen (NEGATIVE) U Methamphetamines Scrn (NEGATIVE) U Benzodiazepines Scrn (NEGATIVE) U Cocaine Metab Screen (NEGATIVE) U Marijuana (THC) Screen (NEGATIVE) Ethyl Alcohol <3 mg/dL SARS-CoV-2 RNA (SAMIR) NEGATIVE (NEGATIVE) Result Diagrams: 05/14/20 15:00 05/14/20 15:00 Sepsis Event Note - Evaluation Sepsis Screening Result: No Definite Risk - Focused Exam Vital Signs: Vital Signs Temp Pulse Resp BP Pulse Ox 05/14/20 16:37 105 H 144/82 H 96 05/14/20 15:33 99 133/70 98 05/14/20 15:15 98 130/73 98 05/14/20 14:32 36.6 C 104 H 18 150/79 H 96 - Problem List (1) Altered mental status SNOMED Code(s): 048576505 ICD Code: R41.82 - ALTERED MENTAL STATUS, UNSPECIFIED Status: Acute (2) Diarrhea SNOMED Code(s): 39648776 ICD Code: R19.7 - DIARRHEA, UNSPECIFIED Status: Acute (3) Leukocytosis SNOMED Code(s): 597224248, 074482333 ICD Code: D72.829 - ELEVATED WHITE BLOOD CELL COUNT, UNSPECIFIED Status: Acute Problem List Initiated/Reviewed/Updated: Yes Orders Last 24hrs: Active Orders 24 hr Category Date Time Status Patient Status [ADT] Routine ADT 05/14/20 18:25 Active EKG Documentation Completion [RC] STAT Care 05/14/20 14:36 Active Abdomen Pelvis w Cont [CT] Stat Exams 05/14/20 18:22 Ordered Sodium Chloride 0.9% [Saline Flush] Med 05/14/20 14:36 Active 10 ml FLUSH ASDIRECTED PRN Sodium Chloride 0.9% [Saline Flush] Med 05/14/20 14:36 Active 2.5 ml FLUSH ASDIRECTED PRN Saline Lock Insert [OM.PC] Stat Oth 05/14/20 14:36 Ordered Medication Orders Sodium Chloride (Saline Flush) 10 ml FLUSH ASDIRECTED PRN PRN Reason: Keep Vein Open Last Admin: 05/14/20 15:12 Dose: 10 ml Documented by: ADILIA Sodium Chloride (Saline Flush) 2.5 ml FLUSH ASDIRECTED PRN PRN Reason: Keep Vein Open Last Admin: 05/14/20 15:12 Dose: 2.5 ml Documented by: ADILIA Assessment/Plan Comment:: Assessment and Plan: 1. Altered mental status: - Admit to med/surg. Patient on telemetry. UA, UDS, CXR and CT head were unremarkable. Troponin negative. Patient does have memory impairment at baseline, however, family notes acute decline over the past few days per daughter Kathy Clark. Altered mental status could be secondary to colitis in the setting of #2. Will continue to monitor. 2. Diarrhea: - Patient is tachycardic and has leukocytosis. Will check lactic acid level. Will order blood cultures and start empiric antibiotics with IV zosyn. Will give 1 L IV LR's @ 75 cc/hr. CT abdomen and pelvis pending. Will also order stool cultures and c. diff studies. 3. Hyperbilirubinemia: - Will monitor. 4. Elevated CK likely secondary to fall: - Patient on IV fluids. 5. DVT prophylaxis: - Heparin 5000 units subcut q8h. <Panfilo Garcia - Last Filed: 05/16/20 13:08> H&P History of Present Illness - General Admit Problem/Dx: Admission Diagnosis/Problem Admission Diagnosis/Problem Altered mental status Exam - Vital Signs Vital Signs: Last Vital Signs Temp 37.1 C 05/15/20 16:00 Pulse 81 05/15/20 16:00 Resp 16 05/15/20 16:00 BP 117/63 05/15/20 16:00 Pulse Ox 98 05/15/20 16:00 - Patient Data Result Diagrams: 05/15/20 06:07 05/15/20 06:07 Darin Results Last 24 hrs: Microbiology 05/14/20 20:05 Aerobic Blood Culture - Preliminary Blood - Venous - Lab Draw NO GROWTH AFTER 1 DAY Anaerobic Blood Culture - Final 05/14/20 19:55 Aerobic Blood Culture - Preliminary Blood - Venous NO GROWTH AFTER 1 DAY Anaerobic Blood Culture - Preliminary NO GROWTH AFTER 1 DAY Orders Last 24hrs: Active Orders 24 hr Category Date Time Status Consult to Home Health [CONS] Routine Cons 05/15/20 12:30 Active Assessment/Plan Comment:: I performed a history and physical exam of the patient and discussed management with resident. I have reviewed the residents note and agree with documented findings and plan unless otherwise specified in my note.
[2020-05-14] MEDS ORDERED: Ondansetron 4 MG/2 ML SDV IVPUSH PRN (19:03)
[2020-05-14] MEDS ORDERED: Acetaminophen 325 MG Tab PO PRN (19:03)
[2020-05-14] MEDS ORDERED: Lactated Ringers 1,000 ML IV SCH (19:15)
[2020-05-14] MEDS ORDERED: Iopamidol 755 MG/ML 500 ML Multipack Bottle IVPUSH STA (19:35)
--- NOTE | 2020-05-14 19:50 | CT ---
Indication: Leukocytosis. Diarrhea. Technique: CT abdomen and pelvis with IV contrast. 80 cc IV Isovue 370. Comparison: None. Findings: Linear subsegmental atelectasis in the lingula. Subcentimeter circumscribed hypoattenuating focus in the liver, too small to characterize but possibly a cyst. The gallbladder, spleen, pancreas and adrenal glands are unremarkable. Kidneys enhance symmetrically. No obstructing renal calculus or hydronephrosis. Atherosclerosis of the abdominal aorta which is normal in caliber. Urinary bladder is distended. Uterus is present. No free fluid or free air. No evidence of bowel obstruction or inflammation. Small hiatal hernia. No enlarged lymph nodes identified in the abdomen or pelvis. Scoliosis. Degenerative changes in the spine and hips. Bones are demineralized. Impression : 1. No specific findings to account for patient`s symptoms. Please note that all CT scans at this facility use dose modulation, iterative reconstruction, and/or weight-based dosing when appropriate to reduce radiation dose to as low as reasonably achievable. Dictated by Blaine Dennison MD @ May 14 2020 7:42PM Signed by Dr. Blaine Dennison @ May 14 2020 7:49PM
[2020-05-14] MEDS: Piperacillin/Tazobactam 3.375 GM in Sodium Chloride 0.9% 50 ML IV SCH (20:09)
[2020-05-14] MEDS: Heparin Sodium 5,000 Units/ML Vial SUBCUT SCH (21:18)
[2020-05-15] MEDS: Piperacillin/Tazobactam 3.375 GM in Sodium Chloride 0.9% 50 ML IV SCH ×3 (01:14→14:39)
[2020-05-15] MEDS: Heparin Sodium 5,000 Units/ML Vial SUBCUT SCH ×2 (03:51→12:03)
[2020-05-15 07:18] LABS: BLOOD UREA NITROGEN,BUN 10 mg/dL (7.0-18.0); CARBON DIOXIDE,CO2 22.5 mmol/L (21.0-32.0); CHLORIDE,CL 105 mmol/L (98-107); GLUCOSE RANDOM 88 mg/dL (74-106); POTASSIUM,K 3.3 mmol/L (3.5-5.1); SODIUM,NA 139 mmol/L (136-145)
[2020-05-15] MEDS ORDERED: Potassium Chloride 20 MEQ Tab.ER PO ONE (09:51)
--- NOTE | 2020-05-15 16:16 | PCM.DCSUM1 ---
<Nakul Vanessa - Last Filed: 05/15/20 18:38> Discharge Summary - Hospital Course Free Text/Narrative:: 75-year-old female admitted for altered mental status and diarrhea. She has no significant PMH, however, per family her memory has been declining for several years. Prior to admission, she was found laying outsider her apartment door with incontinent stool. Patient reports having diarrhea for 3-4 days and would have at least 5 watery stools daily. Patient resides at [facility]. On admission, UA, UDS, CXR, CT head and CT abd/pelvis were unremarkable. She was noted to have leukocytosis and tachycardic so was started on fluids and IV zosyn. Leukocytosis resolved the following morning and vitals signs remained stable. Patient did not have any diarrhea during her hospital stay. She was discharged with home health consult. Neurology referral was provided for dementia evaluation. Advised to follow-up with PCP. - Discharge Data Discharge Date: 05/15/20 Discharge Disposition: Home, Home Health Agency Condition: Stable - Referral to Home Health Date of Face to Face Encounter: 05/15/20 Reason for Homebound Status: Weakness and deconditioning due to hospitalization for esacerbation of disease process. Primary Care Physician: PCP None Skilled Need: Physical Therapy for strengthening due to weakness from recent hospitalization and deconditioning due to disease process. - Discharge Diagnosis/Problem(s) (1) Altered mental status SNOMED Code(s): 357801964 ICD Code: R41.82 - ALTERED MENTAL STATUS, UNSPECIFIED Status: Acute (2) Diarrhea SNOMED Code(s): 37962942 ICD Code: R19.7 - DIARRHEA, UNSPECIFIED Status: Acute (3) Leukocytosis SNOMED Code(s): 481035849, 092706720 ICD Code: D72.829 - ELEVATED WHITE BLOOD CELL COUNT, UNSPECIFIED Status: Acute (4) Diarrhea SNOMED Code(s): 71483013 ICD Code: R19.7 - DIARRHEA, UNSPECIFIED Status: Acute - Patient Summary/Data Consults: Consultations 05/15/20 12:30 Consult to Home Health [CONS] Routine - Patient Instructions Diet: Regular Diet as Tolerated Activity: As Tolerated Notify Provider of: Fever, Increased Pain, Swelling and Redness, Drainage, Nausea and/or Vomiting - Discharge Plan *PRESCRIPTION DRUG MONITORING PROGRAM REVIEWED*: Not Applicable *COPY OF PRESCRIPTION DRUG MONITORING REPORT IN PATIENT YANETH: Not Applicable Oxygen Therapy Mode: Room Air Patient Handouts: Confusion Referrals: Robert Minor MD [Resident] - 05/28/20 3:00 pm Lynnette Richardson MD [Physician] - 06/17/20 10:45 am (Dr Richardson's office will call you with an appointment) - Discharge Summary/Plan Comment DC Time >30 min.: No - Patient Data Vitals - Most Recent: Last Vital Signs Temp 37.1 C 05/15/20 16:00 Pulse 81 05/15/20 16:00 Resp 16 05/15/20 16:00 BP 117/63 05/15/20 16:00 Pulse Ox 98 05/15/20 16:00 Weight - Most Recent: 61.416 kg I&O - Last 24 hours: Intake & Output 05/15/20 05/15/20 05/15/20 06:59 14:59 22:59 Intake Total 250 Output Total 300 Balance -50 Lab Results - Last 24 hrs: Laboratory Results - last 24 hr 05/14/20 05/14/20 05/15/20 Range/Units 15:05 20:05 06:07 WBC 10.37 (4.0-11.0) K/uL RBC 3.67 L (4.30-5.90) M/uL Hgb 12.4 (12.0-16.0) g/dL Hct 36.7 (36.0-46.0) % MCV 100.0 H (80.0-98.0) fL MCH 33.8 H (27.0-32.0) pg MCHC 33.8 (31.0-37.0) g/dL RDW Std Deviation 49.3 (28.0-62.0) fl RDW Coeff of Anitha 14 (11.0-15.0) % Plt Count 232 (150-400) K/uL MPV 10.70 (7.40-12.00) fL Neut % (Auto) 61.6 (48.0-80.0) % Lymph % (Auto) 28.5 (16.0-40.0) % [place] % (Auto) 8.7 (0.0-15.0) % Eos % (Auto) 1.0 (0.0-7.0) % Baso % (Auto) 0.2 (0.0-1.5) % Neut # (Auto) 6.4 H (1.4-5.7) K/uL Lymph # (Auto) 3.0 H (0.6-2.4) K/uL [place] # (Auto) 0.9 H (0.0-0.8) K/uL Eos # (Auto) 0.1 (0.0-0.7) K/uL Baso # (Auto) 0.0 (0.0-0.1) K/uL Nucleated RBC % 0.0 /100WBC Nucleated RBCs # 0 K/uL Lactate 1.9 (0.20-2.00) mmol/L Sodium (136-145) mmol/L Potassium (3.5-5.1) mmol/L Chloride (98-107) mmol/L Carbon Dioxide (21.0-32.0) mmol/L BUN (7.0-18.0) mg/dL Creatinine (0.6-1.0) mg/dL Est Cr Clr Drug Dosing mL/min Estimated GFR (MDRD) ml/min Glucose (74-106) mg/dL Calcium (8.5-10.1) mg/dL Magnesium (1.8-2.4) mg/dL Total Bilirubin (0.2-1.0) mg/dL AST (15-37) IU/L ALT (14-63) IU/L Alkaline Phosphatase (46-116) U/L Total Protein (6.4-8.2) g/dL Albumin (3.4-5.0) g/dL Globulin (2.6-4.0) g/dL Albumin/Globulin Ratio (0.9-1.6) SARS-CoV-2 RNA (SAMIR) NEGATIVE (NEGATIVE) 05/15/20 05/15/20 Range/Units 06:07 06:07 WBC (4.0-11.0) K/uL RBC (4.30-5.90) M/uL Hgb (12.0-16.0) g/dL Hct (36.0-46.0) % MCV (80.0-98.0) fL MCH (27.0-32.0) pg MCHC (31.0-37.0) g/dL RDW Std Deviation (28.0-62.0) fl RDW Coeff of Anitha (11.0-15.0) % Plt Count (150-400) K/uL MPV (7.40-12.00) fL Neut % (Auto) (48.0-80.0) % Lymph % (Auto) (16.0-40.0) % [place] % (Auto) (0.0-15.0) % Eos % (Auto) (0.0-7.0) % Baso % (Auto) (0.0-1.5) % Neut # (Auto) (1.4-5.7) K/uL Lymph # (Auto) (0.6-2.4) K/uL [place] # (Auto) (0.0-0.8) K/uL Eos # (Auto) (0.0-0.7) K/uL Baso # (Auto) (0.0-0.1) K/uL Nucleated RBC % /100WBC Nucleated RBCs # K/uL Lactate (0.20-2.00) mmol/L Sodium 139 (136-145) mmol/L Potassium 3.3 L (3.5-5.1) mmol/L Chloride 105 (98-107) mmol/L Carbon Dioxide 22.5 (21.0-32.0) mmol/L BUN 10 (7.0-18.0) mg/dL Creatinine 0.8 (0.6-1.0) mg/dL Est Cr Clr Drug Dosing 57.10 mL/min Estimated GFR (MDRD) > 60.0 ml/min Glucose 88 (74-106) mg/dL Calcium 8.0 L (8.5-10.1) mg/dL Magnesium 2.1 (1.8-2.4) mg/dL Total Bilirubin 1.3 H (0.2-1.0) mg/dL AST 22 (15-37) IU/L ALT 18 (14-63) IU/L Alkaline Phosphatase 68 (46-116) U/L Total Protein 5.3 L (6.4-8.2) g/dL Albumin 3.1 L (3.4-5.0) g/dL Globulin 2.2 L (2.6-4.0) g/dL Albumin/Globulin Ratio 1.4 (0.9-1.6) SARS-CoV-2 RNA (SAMIR) (NEGATIVE) JENNY Results - Last 24 hrs: Microbiology 05/14/20 20:05 Anaerobic Blood Culture - Final Blood - Venous - Lab Draw Med Orders - Current: Current Medications Acetaminophen (Tylenol) 650 mg PO Q4H PRN PRN Reason: Pain (Mild 1-3)/fever Heparin Sodium (Porcine) (Heparin Sodium) 5,000 units SUBCUT Q8H SUNNY Last Admin: 05/15/20 12:03 Dose: 5,000 units Documented by: Piperacillin Sod/Tazobactam (Sod 3.375 gm/ Sodium Chloride) 50 mls @ 100 mls/hr IV Q6H SUNNY Last Admin: 05/15/20 14:39 Dose: 100 mls/hr Documented by: Ondansetron HCl (Zofran) 4 mg IVPUSH Q4H PRN PRN Reason: Nausea Sodium Chloride (Saline Flush) 10 ml FLUSH ASDIRECTED PRN PRN Reason: Keep Vein Open Last Admin: 05/14/20 15:12 Dose: 10 ml Documented by: Sodium Chloride (Saline Flush) 2.5 ml FLUSH ASDIRECTED PRN PRN Reason: Keep Vein Open Last Admin: 05/14/20 15:12 Dose: 2.5 ml Documented by: Discontinued Medications Lactated Ringer's (Ringers, Lactated) 1,000 mls @ 75 mls/hr IV ASDIRECTED SUNNY Stop: 05/15/20 08:34 Last Admin: 05/14/20 19:48 Dose: 75 mls/hr Documented by: Iopamidol (Isovue Multipack-370 (76%)) 80 ml IVPUSH ONETIME STA Stop: 05/14/20 19:36 Last Admin: 05/14/20 19:37 Dose: 80 ml Documented by: Potassium Chloride (Klor-Con M20) 40 meq PO ONETIME ONE Stop: 05/15/20 09:52 Last Admin: 05/15/20 10:11 Dose: 40 meq Documented by: <Panfilo Garcia - Last Filed: 05/16/20 13:16> Discharge Summary - Hospital Course Free Text/Narrative:: I have seen and evaluated the patient and agree with the residents note unless specified in my note - Referral to Home Health Primary Care Physician: PCP None - Patient Summary/Data Consults: Consultations 05/15/20 12:30 Consult to Home Health [CONS] Routine - Patient Data Vitals - Most Recent: Last Vital Signs Temp 37.1 C 05/15/20 16:00 Pulse 81 05/15/20 16:00 Resp 16 05/15/20 16:00 BP 117/63 05/15/20 16:00 Pulse Ox 98 05/15/20 16:00 JENNY Results - Last 24 hrs: Microbiology 05/14/20 20:05 Aerobic Blood Culture - Preliminary Blood - Venous - Lab Draw NO GROWTH AFTER 1 DAY Anaerobic Blood Culture - Final 05/14/20 19:55 Aerobic Blood Culture - Preliminary Blood - Venous NO GROWTH AFTER 1 DAY Anaerobic Blood Culture - Preliminary NO GROWTH AFTER 1 DAY Med Orders - Current: Current Medications Discontinued Medications Acetaminophen (Tylenol) 650 mg PO Q4H PRN PRN Reason: Pain (Mild 1-3)/fever Heparin Sodium (Porcine) (Heparin Sodium) 5,000 units SUBCUT Q8H [facility] Last Admin: 05/15/20 12:03 Dose: 5,000 units Documented by: Lactated Ringer's (Ringers, Lactated) 1,000 mls @ 75 mls/hr IV ASDIRECTED SUNNY Stop: 05/15/20 08:34 Last Admin: 05/14/20 19:48 Dose: 75 mls/hr Documented by: Piperacillin Sod/Tazobactam (Sod 3.375 gm/ Sodium Chloride) 50 mls @ 100 mls/hr IV Q6H SUNNY Last Admin: 05/15/20 14:39 Dose: 100 mls/hr Documented by: Iopamidol (Isovue Multipack-370 (76%)) 80 ml IVPUSH ONETIME STA Stop: 05/14/20 19:36 Last Admin: 05/14/20 19:37 Dose: 80 ml Documented by: Ondansetron HCl (Zofran) 4 mg IVPUSH Q4H PRN PRN Reason: Nausea Potassium Chloride (Klor-Con M20) 40 meq PO ONETIME ONE Stop: 05/15/20 09:52 Last Admin: 05/15/20 10:11 Dose: 40 meq Documented by: Sodium Chloride (Saline Flush) 10 ml FLUSH ASDIRECTED PRN PRN Reason: Keep Vein Open Last Admin: 05/14/20 15:12 Dose: 10 ml Documented by: Sodium Chloride (Saline Flush) 2.5 ml FLUSH ASDIRECTED PRN PRN Reason: Keep Vein Open Last Admin: 05/14/20 15:12 Dose: 2.5 ml Documented by:
== END 2020-05-15 16:39 | disposition home health service (06) ==
LOC: MW.ED 14:30 → MW.MS 18:35
PROVIDERS: ADMIT Student in an Organized Health Care Education/Training Program; ATTEND Student in an Organized Health Care Education/Training Program
DX: R41.82 Altered mental status, unspecified (principal); R19.7 Diarrhea, unspecified; Z79.899 Other long term (current) drug therapy; Z88.2 Allergy status to sulfonamides; Z20.828 Contact with and (suspected) exposure to other viral communicable diseases
CPT/HCPCS: 36415; 70450; 71046; 74177; 80053; 80305; 80307; 81001; 82550; 83605; 83735; 84484; 85025; 87040; 93005; A9270; J1644; J2543; J7050; J7120; Q9967; U0002; 93010; 99217; 99219; 99284

== ENCOUNTER 2022-02-15 20:19 | Emergency (ER) | payer MEDICARE, OTHER ==
[2022-02-15] MEDS ORDERED: Sodium Chloride 0.9% 10 ML Syringe FLUSH PRN (20:33)
[2022-02-15] MEDS ORDERED: Sodium Chloride 0.9% 2.5 ML Syringe FLUSH PRN (20:33)
[2022-02-15 21:37] LABS: POTASSIUM,K 4.4 mmol/L (3.5-5.1)
[2022-02-15] MEDS ORDERED: Ondansetron 4 MG/2 ML SDV IVPUSH ONE (21:48)
[2022-02-15] MEDS ORDERED: Iopamidol 755 MG/ML 500 ML Multipack Bottle IVPUSH ONE (22:06)
[2022-02-15] MEDS ORDERED: Sodium Chloride 0.9% 1,000 ML IV ONE (22:39)
== END 2022-02-15 23:57 | disposition home or self-care (01) ==
LOC: MW.ED 20:19
DX: E86.0 Dehydration (principal); E87.1 Hypo-osmolality and hyponatremia; R11.2 Nausea with vomiting, unspecified; Z88.2 Allergy status to sulfonamides; Z79.899 Other long term (current) drug therapy; Z20.822 Contact with and (suspected) exposure to COVID-19
CPT/HCPCS: 36415; 74177; 80053; 81001; 85025; 93005; 96361; 96374; 99284; J2405; J3490; J7030; Q9967; U0002; 93010